=== PATIENT | female | born 1995 | race African-American/Black ===

== ENCOUNTER → 2022-07-21 09:42 | Outpatient (BNVA) | payer BC, MEDICAID, SELFPAY | PROVIDERS: Visit Provider Obstetrics & Gynecology | DX: Z36.87 Encounter for antenatal screening for uncertain dates (principal) | CPT/HCPCS: 76801 ==

== ENCOUNTER → 2022-08-19 12:30 | Outpatient (BNVA) | payer BC, MEDICAID, SELFPAY | PROVIDERS: Visit Provider Obstetrics & Gynecology | DX: O09.92 Supervision of high risk pregnancy, unspecified, second trimester (principal); Z3A.00 Weeks of gestation of pregnancy not specified | CPT/HCPCS: 80307; 81000; 85027; 86592; 86762; 86803; 86850; 86900; 87086; 87340; 87491; 87591; 87661; 87806 ==

== ENCOUNTER → 2022-09-13 10:19 | Outpatient (BNVA) | payer BC, MEDICAID, SELFPAY | PROVIDERS: Visit Provider Obstetrics & Gynecology | DX: Z36.87 Encounter for antenatal screening for uncertain dates (principal) | CPT/HCPCS: 76805 ==

== ENCOUNTER → 2022-09-19 11:15 | Outpatient (BNVA) | payer BC, MEDICAID, SELFPAY | PROVIDERS: Visit Provider Obstetrics & Gynecology | DX: O09.92 Supervision of high risk pregnancy, unspecified, second trimester (principal); Z3A.00 Weeks of gestation of pregnancy not specified | CPT/HCPCS: 81000 ==

== ENCOUNTER → 2022-10-13 09:55 | Outpatient (BNVA) | payer BC, MEDICAID, SELFPAY | PROVIDERS: Visit Provider Obstetrics & Gynecology | DX: Z34.92 Encounter for supervision of normal pregnancy, unspecified, second trimester (principal) | CPT/HCPCS: 76816 ==

== ENCOUNTER → 2022-10-20 14:20 | Outpatient (BNVA) | payer BC, MEDICAID, SELFPAY | PROVIDERS: Visit Provider Nurse Practitioner Women's Health | DX: O09.92 Supervision of high risk pregnancy, unspecified, second trimester (principal); Z3A.00 Weeks of gestation of pregnancy not specified | CPT/HCPCS: 81000; 82950 ==

== ENCOUNTER → 2022-11-18 13:05 | Outpatient (BNVA) | payer BC, MEDICAID, SELFPAY | PROVIDERS: Visit Provider Obstetrics & Gynecology | DX: O09.92 Supervision of high risk pregnancy, unspecified, second trimester (principal); O09.299 Supervision of pregnancy with other poor reproductive or obstetric history, unspecified trimester; Z87.59 Personal history of other complications of pregnancy, childbirth and the puerperium; O09.219 Supervision of pregnancy with history of pre-term labor, unspecified trimester; Z3A.00 Weeks of gestation of pregnancy not specified | CPT/HCPCS: 81000 ==

== ENCOUNTER → 2022-12-02 10:12 | Outpatient (BNVA) | payer BC, MEDICAID, SELFPAY | PROVIDERS: Visit Provider Obstetrics & Gynecology | DX: O09.92 Supervision of high risk pregnancy, unspecified, second trimester (principal); O09.299 Supervision of pregnancy with other poor reproductive or obstetric history, unspecified trimester; Z3A.00 Weeks of gestation of pregnancy not specified | CPT/HCPCS: 80053; 81000; 85027; 87086 ==

== ENCOUNTER → 2022-12-09 08:20 | Outpatient (BNVA) | payer BC, MEDICAID, SELFPAY | PROVIDERS: Visit Provider Obstetrics & Gynecology | DX: O09.90 Supervision of high risk pregnancy, unspecified, unspecified trimester (principal); Z3A.32 32 weeks gestation of pregnancy | CPT/HCPCS: 76816; 81000 ==

== ENCOUNTER 2022-12-13 07:41 | Outpatient (CLI) | payer BC, MEDICAID, SELFPAY ==
[2022-12-13] VITALS (8 sets, daily range): BP systolic 104–127; BP diastolic 58–77; PULSE 78–89; RESP 15; BMI 28.7
--- NOTE | 2022-12-13 08:01 | US_ITS ---
WS: [id number] BIOPHYSICAL PROFILE AMNIOTIC FLUID HISTORY: previous IUGR, previous preeclampsia in pregnancies COMPARISON: 12/09/2022. position: Vertex. Cardiac activity: 144 bpm. Cervix: Not visualized. Placenta: Posterior, no previa or abruption. Placenta grade: 1 Parameters are as follows: Breathin Movement: 2 Tone: 2 Fluid volume: 2 Amniotic Fluid Index: 11.1 cm; single deep vertical pocket 3.9 cm. US/US OB BPP wo NST 19703 IMPRESSION: 1. Biophysical profile score: 6/8. No breathing motions identified on thi s exam. 2. Normal amniotic fluid. 3. Grade 1 placenta.
== END 2022-12-13 10:08 | disposition home or self-care (01) ==
LOC: OPOB 07:44 → OBGYN 07:45
PROVIDERS: Visit Provider Obstetrics & Gynecology
DX: O26.899 Other specified pregnancy related conditions, unspecified trimester (principal); Z3A.00 Weeks of gestation of pregnancy not specified
CPT/HCPCS: 59025; 76819

== ENCOUNTER → 2022-12-22 07:51 | Outpatient (BNVA) | payer BC, MEDICAID, SELFPAY | PROVIDERS: Visit Provider Obstetrics & Gynecology | DX: Z34.90 Encounter for supervision of normal pregnancy, unspecified, unspecified trimester (principal) | CPT/HCPCS: 76819 ==

== ENCOUNTER → 2022-12-23 12:00 | Outpatient (BNVA) | payer BC, MEDICAID, SELFPAY | PROVIDERS: Visit Provider Nurse Practitioner Women's Health | DX: O09.90 Supervision of high risk pregnancy, unspecified, unspecified trimester (principal); Z3A.00 Weeks of gestation of pregnancy not specified | CPT/HCPCS: 81000; 82607; 82728; 82746; 83550; 85027 ==

== ENCOUNTER 2022-12-26 08:02 | Outpatient (CLI) | payer BC, MEDICAID, SELFPAY ==
[2022-12-26 09:09] LABS: Total Volume, Urine 1075 mL; Urine Total Protein 10.4 mg/dL (0-150); Urine Total Protein 24 Hour 111.8 mg/24hr (0-150)
== END 2022-12-26 08:03 | disposition home or self-care (01) ==
LOC: LAB 08:06
PROVIDERS: Visit Provider Nurse Practitioner Women's Health
DX: O09.299 Supervision of pregnancy with other poor reproductive or obstetric history, unspecified trimester (principal)
CPT/HCPCS: 84156

== ENCOUNTER 2022-12-29 08:20 | Outpatient (CLI) | payer BC, MEDICAID, SELFPAY ==
[2022-12-29 08:34] VITALS: BP 119/82; PULSE 90
--- NOTE | 2022-12-29 08:37 | US_ITS ---
WS: [id number] BIOPHYSICAL PROFILE AMNIOTIC FLUID HISTORY: Hx preeclampsia and IUGR COMPARISON: 07/21/2022, 10/13/2022 and 12/09/2022 position: Vertex. Cardiac activity: 141 bpm. Cervix: closed. Placenta: Posterior, no previa or abruption. Placenta grade: 1 Parameters are as follows: Breathin Movement: 2 Tone: 2 Fluid volume: 2 Amniotic Fluid Index: 13.1 cm. Single deep vertical pocket 4.8 cm. US/US OB BPP wo NST 35544 IMPRESSION: 1. Biophysical profile score: 8/8. 2. Normal amniotic fluid.
[2022-12-29 08:49] VITALS: BP 114/83; PULSE 92
[2022-12-29 09:04] VITALS: BP 116/82; PULSE 79
[2022-12-29 09:19] VITALS: BP 115/83; PULSE 86
[2022-12-29 09:35] VITALS: BP 96/56; PULSE 64
[2022-12-29 09:50] VITALS: BP 96/56; PULSE 64
--- NOTE | 2022-12-29 10:13 | PC.NURSE ---
THIS TELEPHONE ORDER CLERK ROOM SERVICE TOOK OVER PATIENT CARE AT 0915 FROM NAOMY MONTERO RN, PATIENT WAS OFF MONITORS JUST WAITING FOR ULTRASOUND. CIARAN HERE [facility] 0930 AND ULTRASOUND COMPLETED WITH BPP 8/8 AND NANCY OF 11. RESULTS CALLED TO DR. BURNETT AND ORDERS RECEIVED TO DISCHARGE HOME WITH INSTRUCIOTNS.
== END 2022-12-29 09:50 | disposition home or self-care (01) ==
LOC: OPOB 08:24 → OBGYN 08:27
PROVIDERS: PCP Family Medicine; Visit Provider Obstetrics & Gynecology
DX: O26.899 Other specified pregnancy related conditions, unspecified trimester (principal); Z3A.00 Weeks of gestation of pregnancy not specified
CPT/HCPCS: 59025; 76819; 99211

== ENCOUNTER → 2022-12-29 09:57 | Day surgery (SDC) | payer BC, MEDICAID, SELFPAY ==
[2022-12-29] MEDS: ferric carboxy (IVPB) 750 MG in sodium chloride 0.9% (100 ml) 100 ML 345 MG IV (10:09)
[2022-12-29 10:13] VITALS: BP 117/73; PULSE 73; RESP 18; TEMP 36.1; O2SAT 99
== END ==
LOC: GILAB 09:58
PROVIDERS: PCP Family Medicine; Visit Provider Family Medicine
DX: O99.019 Anemia complicating pregnancy, unspecified trimester (principal); Z3A.00 Weeks of gestation of pregnancy not specified
CPT/HCPCS: 96365; J1439

== ENCOUNTER → 2023-01-05 07:49 | Outpatient (BNVA) | payer BC, MEDICAID, SELFPAY | PROVIDERS: PCP Family Medicine; Visit Provider Radiology Diagnostic Radiology | DX: O99.019 Anemia complicating pregnancy, unspecified trimester (principal); Z3A.00 Weeks of gestation of pregnancy not specified | CPT/HCPCS: 76816; 76819 ==

== ENCOUNTER → 2023-01-06 10:20 | Outpatient (BNVA) | payer BC, MEDICAID, SELFPAY | PROVIDERS: PCP Family Medicine; Visit Provider Obstetrics & Gynecology | DX: O09.92 Supervision of high risk pregnancy, unspecified, second trimester (principal); Z3A.00 Weeks of gestation of pregnancy not specified | CPT/HCPCS: 81000; 87081 ==

== ENCOUNTER → 2023-01-12 08:59 | Outpatient (BNVA) | payer BC, MEDICAID, SELFPAY | PROVIDERS: PCP Family Medicine; Visit Provider Obstetrics & Gynecology | DX: O09.92 Supervision of high risk pregnancy, unspecified, second trimester (principal); Z3A.00 Weeks of gestation of pregnancy not specified | CPT/HCPCS: 76819 ==

== ENCOUNTER → 2023-01-13 11:16 | Outpatient (BNVA) | payer BC, MEDICAID, SELFPAY | PROVIDERS: PCP Family Medicine; Visit Provider Obstetrics & Gynecology | DX: O09.90 Supervision of high risk pregnancy, unspecified, unspecified trimester (principal); Z3A.00 Weeks of gestation of pregnancy not specified | CPT/HCPCS: 81000; 85025 ==

== ENCOUNTER → 2023-01-19 09:32 | Outpatient (BNVA) | payer BC, MEDICAID, SELFPAY | PROVIDERS: PCP Family Medicine; Visit Provider Obstetrics & Gynecology | DX: O09.92 Supervision of high risk pregnancy, unspecified, second trimester (principal); Z3A.00 Weeks of gestation of pregnancy not specified | CPT/HCPCS: 76819 ==

== ENCOUNTER → 2023-01-20 11:18 | Outpatient (BNVA) | payer BC, MEDICAID, SELFPAY | PROVIDERS: Visit Provider Obstetrics & Gynecology | DX: O09.90 Supervision of high risk pregnancy, unspecified, unspecified trimester (principal); Z3A.00 Weeks of gestation of pregnancy not specified | CPT/HCPCS: 81000 ==

== ENCOUNTER 2023-01-22 06:45 | Inpatient (IN) | payer BC, MEDICAID, SELFPAY ==
[2023-01-22] VITALS (59 sets, daily range): BP systolic 110–171; BP diastolic 57–108; PULSE 56–146; RESP 18; TEMP 35.7–36.9; O2SAT 95–100
[2023-01-22 07:26] LABS: Basophils % 0.5 %; Eosinophils # 0.2 10^3/uL (0.0-0.8); Eosinophils % 2.9 %; Hematocrit 40.1 % (37.0-47.0); Hemoglobin 11.9 g/dL (11.5-15.3); Lymphocytes # 1.8 10^3/uL (0.8-4.8); Lymphocytes % 27.5 %; Mean Corpuscular HGB Conc 29.7 g/dL (30.0-36.0); Mean Corpuscular Hemoglobin 25.3 pg (28.0-34.0); Mean Corpuscular Volume 85.3 fl (81-99); Mean Platelet Volume 12.7 fL (7.4-10.4); Monocytes # 0.5 10^3/uL (0.2-0.9); Monocytes % 7.2 %; Neutrophils # 4.01 10^3/uL (1.8-7.7); Neutrophils % 61.6 %; Nucleated Red Blood Cells % 0 %; Platelet Count 169 10^3/cmm (130-400); White Blood Count 6.5 10^3/uL (4.0-10.0)
--- NOTE | 2023-01-22 08:19 | PM.OBGYHP ---
Providers/Chief Complaint Admitting Physician: Laurie ADAMES Primary TIRE MAINTENANCE TECHNICIAN: Jose PETERSON Chief Complaint: possible ROM HPI TIRE MAINTENANCE TECHNICIAN History of Present Illness Mile Zambrano is a 27 year old female with JOSELIN 02/02/2023 currently at 38.3 weeks gestation admitted with complaints of rupture of membranes at 5 AM today. Patient denies vaginal bleeding or decreased movement. Patient has history of previous delivery with IUGR and PIH, and therefore has been receiving weekly NSTs and biophysical profiles. Initial nursing assessment?EFM category 1 with contractions every 10 minutes and moderate variability. Cervix initial exam 2 cm/thick/-2 vertex presentation. Gross fluid clear. Nitrazine positive. After review of external monitoring, reviewed with patient management of labor plan and augmentation since contractions have spaced, and are very irregular. Patient verbalizes understanding that she was induced last with Pitocin. Explained if nonreassuring monitoring occurs we will discontinue Pitocin and if indicated emergency . Patient understands and agrees. Labs Rubella: Immune RPR: Negative GBS: Negative Review of Systems General: Reports: 10 or more systems reviewed and unremarkable except in HPI and below Narrative: 27-year-old female alert and oriented x3 answers questions appropriately Medications/Allergies Home Medications Medication Instructions Recorded Confirmed Last Taken Type ferrous sulfate 325 mg (65 mg 325 mg PO BID 90 days #180 tabs 08/19/22 01/20/23 12/29/22 Rx iron) tablet,delayed release ferric carboxymaltose (Injectafer) 750 mg (15 mL) IV Q7D 2 doses #15 12/28/22 01/20/23 12/29/22 Rx mL triamcinolone acetonide 0.5 % 1 applic topical TID #15 grams 01/06/23 01/20/23 Unknown Rx topical cream Allergies Allergy/AdvReac Type Severity Reaction Status Date / Time No Known Allergies Allergy Verified 01/20/23 11:57 PFSH TIRE MAINTENANCE TECHNICIAN PFSH: Medical History History of intrauterine growth restriction in prior , currently History of pre-term labor History of spontaneous , currently eclampsia Supervision of high risk in second trimester Surgical History No pertinent past surgical history Family History Unknown Family history unknown patient was adopted Other Diabetes Denies family history of Colon cancer Ovarian cancer Thyroid cancer Heart disease Breast cancer Hypertension Uterine cancer Stroke Social History Smoking and tobacco status: never smoked History History History 11 Term 3 2 Miscarriages/Ectopic 5 Living Children 5 Care JOSELIN Calculator Estimated Delivery Date Method Current WG Current Estimate 02/03/23 LMP (Certain) 38w 2d Other Estimates 02/02/23 Ultrasound #1 38w 3d Specific Issues/Plans HX OF IUGR HX PTL AND DELIVERY HX PRE-E ANEMIA Vitals/I&O/Wt Last Vital Signs Temp 96.3 F L 01/22/23 06:24 Pulse 91 01/22/23 08:18 Resp 18 01/22/23 06:25 BP 122/82 01/22/23 08:18 O2 Del Method 01/22/23 06:25 Weight last 48 hrs Weight 70.76 kg Physical Exam Narrative: 27-year-old female alert and orient x3 no acute distress. Vital signs stable afebrile HENMT: COMMON NORMALS: normocephalic, moist oral mucous membranes and dentition normal Resp: COMMON NORMALS: normal respiratory effort and clear to auscultation bilaterally Cardio: COMMON NORMALS: regular rate and regular rhythm GI: COMMON NORMALS: Soft to palpation and non-tender : OTHER: Per nursing exam cervix 2 cm / 50%/-2 vertex presentation Extremity: COMMON NORMALS: normal to inspection, no calf tenderness and no pedal edema Neuro: COMMON NORMALS: patient oriented x3, CN's II-XII intact bilaterally, moves all extremities and deep tendon reflexes 2+ bilaterally Data 01/22/23 06:50 A&P Assessment and plan (1) History of prior with IUGR : (2) History of pre-eclampsia in prior , currently : Plan A.1. 27-year-old at 38.3 weeks gestation 2. SROM 3. GBS negative P.1. admit to labor and delivery for management of labor, augment for adequate contractions Attestations Medical Necessity Statement*: Management of labor Coding Level of Care Code Acute Code for Chg Fwd Diagnoses History of prior with IUGR Z87.59 History of pre-eclampsia in prior , currently O09.299
[2023-01-22] MEDS: oxytocin 30 UNIT/500 ML BAG IV (08:35)
[2023-01-22] MEDS: dextrose 5%-lactated ringers 1,000 ML 125 ML IV (08:36)
--- NOTE | 2023-01-22 09:51 | PM.OBGYPN ---
SOLDERING TECHNICIAN Subjective Subjective: Interval history: Patient seen breathing well with contractions. EFM?category 1 Cervix?5 cm / 80%/-2 vertex presentation clear fluid noted. Discussion with patient whether epidural as desired. Patient desires epidural informed we will contact anesthesia for placement. IV pain medication offered patient declines. Labor: Station: -2 Amniotic Membrane Status: Ruptured Monitor Mode: External Contraction Pattern: Irregular Vitals/I&O/Wt Last Vital Signs Temp 96.3 F L 01/22/23 06:24 Pulse 71 01/22/23 09:39 Resp 18 01/22/23 06:25 BP 128/86 01/22/23 09:39 O2 Del Method 01/22/23 07:10 Weight last 48 hrs Weight 70.76 kg Data 01/22/23 06:50 A&P Assessment and plan (1) Supervision of high risk in second trimester: Plan A. Active labor with spontaneous rupture membranes P. Will contact anesthesia for epidural placement Attestations Medical Necessity Statement*: Management of labor Coding Level of Care Code Acute Code for Chg Fwd Diagnoses Supervision of high risk in second trimester O09.92
[2023-01-22] MEDS: lactated ringers 1,000 ML 999 ML IV (09:58)
--- NOTE | 2023-01-22 10:47 | P.ANES_ITS ---
Documented by User: Titus Pan Jr, PLATE EMBOSSER 01/22/23 10:50 Anesthesia Procedures Procedure/Date: 01/22/23 DEYSI Epidural: Time Out Performed: Yes Consents Signed: Procedure Consent Co nsent: requested by attending/covering physician, from patient, risks and benefits reviewed and patient agrees to proceed Lumbar Level: L3-L4 Epid ural position: sitting Epidural procedure: sterile prep of area, 1% lidocaine to numb the area, 18 g needle, neg for paresthesia, test dose given, 1.5% xylocaine 1:200k epi (5cc), 0.2% Ropivacaine bolus ml (4cc and Fentanyl 100mcg ), sterile dressing applied, L.U.D. no apparent complications and 0.2% Ropiavacaine @ mls/hr (13cc/hour.) Additional Comments: PATO at 7cm. Epidural cath plaed 2 cm into space. Pt tolerated well Documented by User: Tom Howard 01/23/23 03:21 Anesthesia Procedures Procedure/Date: 01/23/23
--- NOTE | 2023-01-22 14:16 | P.PCNOB_ITS ---
Delivery Note: Date of delivery: January 22, 2023 Pre-delivery diagnoses: 27yo at 38.3 wk IUP in early labor SROM Hx of IUGR last Hx of PIH last Post-delivery diagnoses: 27yo at 28.3 wk IUP delivered via Procedure: 27-year-old female delivered OA presentation and following a contraction the anterior followed by the posterior shoulders delivered with the remainder of baby's body to follow. Spontaneous cry was noted. After delay of cord clamping the cord was clamped and cut and the baby placed on the maternal chest for bon ding. The baby was dried and stimulated by nursing staff and evaluated. Three- vessel cord was noted cord blood obtained and handed off. The uterus was massaged and the placenta presented in a Santana presentation with trailing membranes. IV solution with Pitocin was started and a bolus manner. The uterus firmed well. The uterus and vaginal vault explored no lacerations noted. ?8/ 9 weight pending Op report anesthesia: Epidural Delivering Physician: Alexi Estimated blood loss (mL): 300 Findings: viable female 8/9 Delivery: Post-Delivery Status: Stable History History History 11 Term 3 2 Miscarriages/Ectopic 5 Living Children 5 A&P Assessment and plan (1) Supervision of high risk in second trimester: A. 27-year-old delivered via a viable female History of IUGR with previous History of PIH last History of anemia Plan P. Began care Coding Level of Care Code Acute Code for Chg Fwd Diagnoses Supervision of high risk in second trimester O09.92
[2023-01-22 17:35] LABS: Add Urine Microscopic? YES; Bilirubin Urine Neg (Negative); Blood Urine 2+ (Negative); Glucose Urine UA Norm (Normal); Ketones Urine 1+ (Negative); Leukocyte Esterase Urine Negative (Negative); Nitrate Urine Negative (Negative); Protein Urine Neg (Negative); Urine Appearance SL Hazy (CLEAR); Urine Color Yellow (Yellow); Urobilinogen Urine Norm (Negative); pH Urine 7 (5-7)
[2023-01-22 17:38] LABS: Add Urine Culture? No; Bacteria Urine TRACE /hpf; Mucus Urine 2+ /hpf; Squamous Epithelial Cell Urine RARE /hpf (0-5)
[2023-01-22 17:39] LABS: RBC Urine 0-4 /hpf (0-2); WBC Urine RARE /hpf (0-5)
[2023-01-22 17:41] LABS: Alanine Aminotransferase 8 U/L (0-33); Albumin Level 3.1 g/dL (3.5-5.2); Alkaline Phosphatase 157 U/L (35-105); Anion Gap 13.8 (5-19); Aspartate Amino Transferase 14 U/L (0-32); Blood Urea Nitrogen 4 mg/dL (6-20); Calcium 9.2 mg/dL (8.5-10.5); Carbon Dioxide 25 mmol/L (22-29); Chloride 106 mmol/L (98-107); Globulin 3.4 g/dL (1.3-4.6); Glucose 112 mg/dL (65-115); Osmolality Calculated 290 mOsm/kg (285-295); Potassium 3.8 mmol/L (3.5-5.1); Sodium 141 mmol/L (136-145); Total Bilirubin 0.2 mg/dL (0.15-1.2); Total Protein 6.5 g/dL (6.6-8.7)
[2023-01-22] MEDS: acetaminophen 325 mg Tablet 650 MG PO (17:54)
[2023-01-22] MEDS: docusate sodium 100 mg Capsule PO (17:55)
[2023-01-22 18:54] LABS: UPRO/UCREAT Ratio 0.11 mg/mg CR; Urine Creatinine 105 mg/dL (28-217); Urine Protein Random 12 mg/dL
[2023-01-22 18:57] LABS: Uric Acid 4.1 mg/dL (2.4-5.7)
[2023-01-22] MEDS: ibuprofen 800 mg tablet PO (21:02)
[2023-01-23 02:45] LABS: Hematocrit 35.4 % (37.0-47.0); Hemoglobin 10.3 g/dL (11.5-15.3); Mean Corpuscular HGB Conc 29.1 g/dL (30.0-36.0); Mean Corpuscular Hemoglobin 25.1 pg (28.0-34.0); Mean Corpuscular Volume 86.1 fl (81-99); Mean Platelet Volume 11.4 fL (7.4-10.4); Platelet Count 151 10^3/cmm (130-400); Red Blood Count 4.11 10^6/uL (4.1-5.3)
--- NOTE | 2023-01-23 03:21 | ANE.PACU2 ---
Inpatient post-anesthesia follow up: Airway intact: Yes Vital signs: Temperature 97.4 F Pulse Rate 99 Respiratory Rate 18 Blood Pressure 112/57 Pulse Oximetry 96 Oxygen Delivery Me thod Room Air Oxygen Flow Rate Fraction of Inspir ed Oxygen Hydration adequate: Yes Nausea and vomiting: No Pain level: 2 Mental status: Baseline
[2023-01-23 05:10] VITALS: BP 100/66; PULSE 78; RESP 14; TEMP 36.6; O2SAT 97
[2023-01-23] MEDS: ibuprofen 800 mg tablet PO ×2 (08:29→15:30)
[2023-01-23] MEDS: prenatal vitamin Capsule 1 CAP PO (08:29)
[2023-01-23] MEDS: docusate sodium 100 mg Capsule PO (08:30)
[2023-01-23 10:11] VITALS: BP 126/92; PULSE 93; RESP 16; TEMP 36.6; O2SAT 97
[2023-01-23] MEDS: acetaminophen 325 mg Tablet 650 MG PO (11:01)
--- NOTE | 2023-01-23 12:17 | PM.OBGYDC ---
Discharge Providers TROLLEY WIRE INSTALLER Date of Admission: 01/22/23 06:45 Date of Discharge: 01/23/23 Attending Provider at Admission: Prema Muro DO Attending Provider at Discharge: Prema Muro DO Primary TROLLEY WIRE INSTALLER: Dr. Garcia Diagnoses at Discharge Discharge Diagnosis (1) Supervision of high risk in second trimester: Details from hospital stay: 27-year-old was admitted on 01/22/2023 in early labor at 38.3 weeks gestation with spontaneous rupture of membranes. Patient's labor was augmented with Pitocin and patient delivered a viable baby girl with no complications. Patient desires to breast-feed and supplement with a bottle. Patient is tolerating a regular diet, voiding and ambulating without difficulties. Patient denies any headaches blurred vision or dizziness no chest pain or shortness of breath. VSS, afebrile Abdomen?soft, fundus firm, lochia light. Extremities?no edema, negative Homans' sign. Lab reviewed hemoglobin 10.5/hematocrit 35.4. Discussed discharge orders and expectations. No heavy lifting pushing or pulling no sexual intercourse douching or tampons x6 weeks. Patient is to continue her vitamins and iron which she has at home. Advised to take ibuprofen 600 or 800 mg p.o. every 6 hours with food if needed for pain. Patient states she has ibuprofen at home. Status: Acute Reason for Visit Reason for Visit: possible ROM Hospital Course Hospital Course Delivery and course unremarkable. Information Peripartum Data: Infant Delivery Method: Vaginal Laceration description: None Physical Exam Urinary Catheter Management: Hauser Latex: Cath Placed During This Visit: yes, but has since been removed by the nurse Reason for Continuing Indwelling Catheter: Decision to DC Catheter Urinary Catheter Date of Insertion: 01/22/23 Urinary Catheter Time of Insertion: 11:31 Date Urinary Catheter Removed: 01/22/23 Time Urinary Catheter Discontinued: 13:58 History History History 11 Term 3 2 Miscarriages/Ectopic 5 Living Children 5 Discharge Data Studies Completed and Pending Laboratory Results WBC 8.0 10^3/uL (4.0-10.0) 01/23/23 02:35 RBC 4.11 10^6/uL (4.1-5.3) 01/23/23 02:35 Hgb 10.3 g/dL (11.5-15.3) L 01/23/23 02:35 Hct 35.4 % (37.0-47.0) L 01/23/23 02:35 MCV 86.1 fl (81-99) 01/23/23 02:35 MCH 25.1 pg (28.0-34.0) L 01/23/23 02:35 MCHC 29.1 g/dL (30.0-36.0) L 01/23/23 02:35 RDW Not Reportable 01/23/23 02:35 Plt Count 151 10^3/cmm (130-400) 01/23/23 02:35 MPV 11.4 fL (7.4-10.4) H 01/23/23 02:35 Neut % (Auto) 61.6 % 01/22/23 06:50 Lymph % (Auto) 27.5 % 01/22/23 06:50 Callahan % (Auto) 7.2 % 01/22/23 06:50 Eos % (Auto) 2.9 % 01/22/23 06:50 Baso % (Auto) 0.5 % 01/22/23 06:50 Neut # (Auto) 4.01 10^3/uL (1.8-7.7) 01/22/23 06:50 Lymph # (Auto) 1.8 10^3/uL (0.8-4.8) 01/22/23 06:50 Callahan # (Auto) 0.5 10^3/uL (0.2-0.9) 01/22/23 06:50 Eos # (Auto) 0.2 10^3/uL (0.0-0.8) 01/22/23 06:50 Baso # (Auto) 0.0 10^3/uL (0.0-0.1) 01/22/23 06:50 Nucleated RBC % (auto) 0 % 01/22/23 06:50 Nucleated RBCs # 0.0 /100WBC 01/22/23 06:50 Sodium 141 mmol/L (136-145) 01/22/23 16:55 Potassium 3.8 mmol/L (3.5-5.1) 01/22/23 16:55 Chloride 106 mmol/L (98-107) 01/22/23 16:55 Carbon Dioxide 25 mmol/L (22-29) 01/22/23 16:55 Anion Gap 13.8 (5-19) 01/22/23 16:55 BUN 4 mg/dL (6-20) L 01/22/23 16:55 Creatinine 0.4 mg/dL (0.5-0.9) L 01/22/23 16:55 GFR Calculation 230.0 mL/min (90-130) H 01/22/23 16:55 Glucose 112 mg/dL (65-115) 01/22/23 16:55 Calculated Osmolality 290 mOsm/kg (285-295) 01/22/23 16:55 Uric Acid 4.1 mg/dL (2.4-5.7) 01/22/23 16:55 Calcium 9.2 mg/dL (8.5-10.5) 01/22/23 16:55 Total Bilirubin 0.2 mg/dL (0.15-1.2) 01/22/23 16:55 AST 14 U/L (0-32) 01/22/23 16:55 ALT 8 U/L (0-33) 01/22/23 16:55 Alkaline Phosphatase 157 U/L (35-105) H 01/22/23 16:55 Total Protein 6.5 g/dL (6.6-8.7) L 01/22/23 16:55 Albumin 3.1 g/dL (3.5-5.2) L 01/22/23 16:55 Globulin 3.4 g/dL (1.3-4.6) 01/22/23 16:55 Urine Color Yellow (Yellow) 01/22/23 17:00 Urine Appearance Sl hazy (CLEAR) A 01/22/23 17:00 Urine pH 7 (5-7) 01/22/23 17:00 Ur Specific Larimore 1.010 (1.005-1.030) 01/22/23 17:00 Urine Protein Neg (Negative) 01/22/23 17:00 Urine Glucose (UA) Norm (Normal) 01/22/23 17:00 Urine Ketones 1+ (Negative) H 01/22/23 17:00 Urine Blood 2+ (Negative) H 01/22/23 17:00 Urine Nitrate Negative (Negative) 01/22/23 17:00 Urine Bilirubin Neg (Negative) 01/22/23 17:00 Urine Urobilinogen Norm mg/dL (Negative) 01/22/23 17:00 Ur Leukocyte Esterase Negative (Negative) 01/22/23 17:00 Urine RBC 0-4 /hpf (0-2) H 01/22/23 17:00 Urine WBC Rare /hpf (0-5) 01/22/23 17:00 Ur Squamous Epith Cells Rare /hpf (0-5) 01/22/23 17:00 Amorphous Sediment Not Reportable 01/22/23 17:00 Urine Bacteria Trace /hpf (NONE) 01/22/23 17:00 Urine Mucus 2+ /hpf 01/22/23 17:00 U Random Total Protein 12 mg/dL 01/22/23 16:55 Urine Creatinine 105 mg/dL (28-217) 01/22/23 16:55 Protein/Creatinin Ratio 0.11 mg/mg CR 01/22/23 16:55 Vitals Last Vital Signs Temp 97.8 F 01/23/23 10:11 Pulse 93 01/23/23 10:11 Resp 16 01/23/23 10:11 BP 126/92 01/23/23 10:11 Pulse Ox 97 01/23/23 10:11 O2 Del Method 01/23/23 10:11 Discharge Plan Discharge Patient Disposition: Home Condition: Stable Prescriptions: Continued ferrous sulfate 325 mg (65 mg iron) tablet,delayed release (DR/EC) 325 mg PO BID 90 Days Qty: 180 1RF Discharge Orders: Discharge Order (Routine); Ordered 01/23/23 Ordered By: Prema Muro Discharge Diet: Regular Discharge Activity: Increase activity as tolerated Patient Instructions: Opioid Safety Activity Restrictions/Additional Instructions: Pelvic rest x6 weeks Assessment: S/p viable female Plan of Treatment: 1. Discharge to home today 2. Follow-up with attending Dr. Garcia in 4 weeks Discharge Attestations TROLLEY WIRE INSTALLER Time Spent in Discharge Care*: less than 30 min Coding Level of Care Code Acute Code for Chg Fwd Diagnoses Supervision of high risk in second trimester O09.92
[2023-01-23 15:35] VITALS: BP 125/86; PULSE 93; RESP 17; TEMP 36.9
[2023-01-23 15:40] VITALS: BP 125/86; PULSE 93; RESP 17; TEMP 36.9
== END 2023-01-23 15:40 | disposition home or self-care (01) | DRG 807 ==
PROVIDERS: Admitting Provider Obstetrics & Gynecology; Visit Provider Obstetrics & Gynecology
DX: O42.02 Full-term premature rupture of membranes, onset of labor within 24 hours of rupture (principal); Z37.0 Single live birth; O99.02 Anemia complicating childbirth; D64.9 Anemia, unspecified; Z3A.38 38 weeks gestation of pregnancy
CPT/HCPCS: 12345; 36415; 51702; 59025; 59409; 80053; 81001; 82570; 83986; 84156; 84550; 85025; 85027; 96374; 99211; J2590; J2795; J3010; J7120; J7121

== ENCOUNTER 2023-12-02 14:30 | Outpatient (CLI) | payer BC, MEDICAID, SELFPAY ==
[2023-12-02 14:40] VITALS: RESP 17; BMI 29.2
[2023-12-02 15:00] LABS: Add Urine Culture? Yes; Bacteria Urine TRACE /hpf; Bilirubin Urine 1+ (Negative); Blood Urine 3+ (Negative); Glucose Urine UA Norm (Normal); Ketones Urine 1+ (Negative); Leukocyte Esterase Urine 1+ (Negative); Nitrate Urine Negative (Negative); Protein Urine 2+ (Negative); RBC Urine TOO NUMEROUS TO CNT /hpf (0-2); Squamous Epithelial Cell Urine 0-4 /hpf (0-5); Urine Appearance Cloudy (CLEAR); Urine Color Red (Yellow); Urobilinogen Urine 1 mg/dL (Negative); WBC Urine 0-4 /hpf (0-5); pH Urine 7 (5-7)
[2023-12-02] MEDS: cefdinir 300 MG CAPSULE PO (15:20)
== END 2023-12-02 15:27 | disposition home or self-care (01) ==
LOC: OPOB 14:35 → OBGYN 14:35
PROVIDERS: Visit Provider Family Medicine
DX: O23.40 Unspecified infection of urinary tract in pregnancy, unspecified trimester (principal); Z3A.00 Weeks of gestation of pregnancy not specified
CPT/HCPCS: 59025; 81001; 87086; 99211

== ENCOUNTER 2023-12-17 10:19 | Outpatient (CLI) | payer BC, MEDICAID, SELFPAY ==
[2023-12-17 10:15] VITALS: BMI 29.8
[2023-12-17 10:30] VITALS: BP 134/89; PULSE 104; TEMP 35
[2023-12-17 10:45] VITALS: BP 126/76; PULSE 88
[2023-12-17 11:00] VITALS: BP 134/84; PULSE 96
[2023-12-17 11:06] LABS: Add Urine Culture? No; Bacteria Urine 2+ /hpf; Bilirubin Urine Neg (Negative); Blood Urine Neg (Negative); Glucose Urine UA Trace (Normal); Ketones Urine 1+ (Negative); Leukocyte Esterase Urine 1+ (Negative); Mucus Urine 1+ /hpf; Nitrate Urine Negative (Negative); Protein Urine Neg (Negative); Squamous Epithelial Cell Urine 15-25 /hpf (0-5); Urine Appearance SL Hazy (CLEAR); Urine Color Dark Yellow (Yellow); Urobilinogen Urine Norm (Negative); WBC Urine 15-25 /hpf (0-5); pH Urine 6 (5-7)
[2023-12-17 11:15] VITALS: BP 132/80; PULSE 118
[2023-12-17 11:31] VITALS: BP 137/86; PULSE 93
[2023-12-17 11:45] VITALS: BP 134/84; PULSE 80
[2023-12-17] MEDS: cefTRIAXone 1,000 MG, lidocaine 1% 2.1 ML in SYRINGE 1 EACH 2.1 MG IM (12:05)
== END 2023-12-17 12:06 | disposition home or self-care (01) ==
LOC: OPOB 10:19 → OBGYN 10:20
PROVIDERS: Visit Provider Family Medicine
DX: O16.9 Unspecified maternal hypertension, unspecified trimester (principal); Z3A.00 Weeks of gestation of pregnancy not specified
CPT/HCPCS: 59025; 81001; 96372; 99211; J0696

== ENCOUNTER 2023-12-18 07:37 | Outpatient (CLI) | payer BC, MEDICAID, SELFPAY ==
[2023-12-18 07:51] VITALS: BMI 29.8
[2023-12-18 08:11] VITALS: BP 116/79; PULSE 65
[2023-12-18] MEDS: cefTRIAXone 1,000 MG, lidocaine 1% 2.1 ML in SYRINGE 1 EACH 2.1 MG IM (08:15)
[2023-12-18 08:20] VITALS: BP 116/79; PULSE 65
== END 2023-12-18 08:20 | disposition home or self-care (01) ==
LOC: OPOB 07:39 → OBGYN 07:44
PROVIDERS: Visit Provider Family Medicine
DX: O26.899 Other specified pregnancy related conditions, unspecified trimester (principal); Z3A.00 Weeks of gestation of pregnancy not specified
CPT/HCPCS: 96372; 99211; J0696

== ENCOUNTER 2023-12-19 07:54 | Outpatient (CLI) | payer BC, MEDICAID, SELFPAY ==
[2023-12-19 08:00] VITALS: BP 115/79; PULSE 90
[2023-12-19] MEDS: cefTRIAXone 1,000 MG in lidocaine 1% 2.1 ML 2.1 MG IM (08:16)
[2023-12-19 08:20] VITALS: BMI 29.8
== END 2023-12-19 12:30 | disposition home or self-care (01) ==
LOC: OPOB 07:56 → OBGYN 07:56
PROVIDERS: Visit Provider Family Medicine
DX: O26.899 Other specified pregnancy related conditions, unspecified trimester (principal); Z3A.00 Weeks of gestation of pregnancy not specified
CPT/HCPCS: 96372; J0696

== ENCOUNTER 2024-01-09 02:12 | Observation (INO) | payer BC, MEDICAID, SELFPAY ==
[2024-01-09 00:37] VITALS: BMI 30.2
[2024-01-09 00:54] VITALS: BP 121/90; PULSE 89
[2024-01-09 01:24] VITALS: BP 120/87; PULSE 75
[2024-01-09 01:26] LABS: Bilirubin Urine Neg (Negative); Blood Urine 3+ (Negative); Glucose Urine UA Norm (Normal); Ketones Urine Negative (Negative); Leukocyte Esterase Urine Negative (Negative); Nitrate Urine Negative (Negative); Protein Urine 1+ (Negative); RBC Urine >100 /hpf (0-2); Urine Appearance Hazy (CLEAR); Urine Color Red (Yellow); Urobilinogen Urine Neg (Negative); pH Urine 6 (5-7)
[2024-01-09 01:27] LABS: Add Urine Culture? Yes; Bacteria Urine TRACE /hpf; Mucus Urine 2+ /hpf; Squamous Epithelial Cell Urine 0-4 /hpf (0-5)
--- NOTE | 2024-01-09 02:19 | USR_ITS ---
PROCEDURE INFORMATION: Exam: US Retroperitoneal; Complete; Kidneys and Bladder Exam date and time: 01/09/2024 3:41 AM Age: 28 years old Clinical indication: Abdominal pain; Patient HX: Left flank pain x 24 hours. 31 weeks . ; Additional info: CVA pain TECHNIQUE: Imaging protocol: Real-time ultrasound of the retroperitoneum with image documentation. Complete exam focused on the kidneys and bladder. [place]PARISON: [place] [id number] 12/12/2023 11:07 AM FINDINGS: Right kidney: Normal parenchymal echogenicity. No stones. Mild hydronephrosis. Left kidney: Normal parenchymal echogenicity. No stones. Mild hydronephrosis. Urinary bladder: Unremarkable. Bilateral ureteral jets seen. US/US renal BI* [id number] IMPRESSION: Mild bilateral hydronephrosis. Bilateral ureteral jets seen.
[2024-01-09] MEDS: lactated ringers 1,000 ML 999 ML IV (02:35)
[2024-01-09] MEDS: ketorolac 30 mg/mL INJ IVP (02:35)
[2024-01-09 02:59] LABS: Basophils # 0.1 10^3/uL (0.0-0.1); Basophils % 0.8 %; Eosinophils # 0.3 10^3/uL (0.0-0.8); Hematocrit 35.9 % (36-47); Lymphocytes # 1.4 10^3/uL (0.8-4.8); Lymphocytes % 23.6 %; Mean Corpuscular HGB Conc 31.5 g/dL (30-55); Mean Corpuscular Hemoglobin 27.2 pg (27-33); Mean Corpuscular Volume 86.3 fl (85-98); Mean Platelet Volume 12.8 fL (7.4-10.4); Monocytes # 0.5 10^3/uL (0.2-0.9); Monocytes % 8.4 %; Neutrophils # 3.75 10^3/uL (1.8-7.7); Neutrophils % 61.9 %; Nucleated Red Blood Cells % 0 %; Platelet Count 131 10^3/cmm (157-399); Red Blood Count 4.16 10^6/uL (3.85-5.65); Red Cell Distribution Width 13.6 % (12.1-15.1); White Blood Count 6.06 10^3/uL (3.29-11.43)
[2024-01-09 03:12] LABS: Alanine Aminotransferase 14 U/L (0-33); Albumin Level 3.4 g/dL (3.5-5.2); Alkaline Phosphatase 150 U/L (35-105); Anion Gap 15.9 (5-19); Aspartate Amino Transferase 23 U/L (0-32); Blood Urea Nitrogen 7 mg/dL (6-20); Calcium 8.9 mg/dL (8.5-10.5); Carbon Dioxide 21 mmol/L (22-29); Chloride 104 mmol/L (98-107); Globulin 3.8 g/dL (1.3-4.6); Glomerular Filtration Rate 176.5 mL/min (90-130); Glucose 87 mg/dL (65-115); Osmolality Calculated 281 mOsm/kg (285-295); Potassium 3.9 mmol/L (3.5-5.1); Sodium 137 mmol/L (136-145); Total Bilirubin 0.2 mg/dL (0.15-1.2); Total Protein 7.2 g/dL (6.6-8.7)
[2024-01-09 04:01] VITALS: BP 110/75; BP 93/56; PULSE 75; PULSE 84; RESP 16; TEMP 36.3; O2SAT 98
[2024-01-09] MEDS: lactated ringers 1,000 ML 200 ML IV (04:02)
[2024-01-09 09:49] VITALS: BP 107/55; PULSE 83; TEMP 36.4
[2024-01-09 15:59] VITALS: BP 113/82; PULSE 65; TEMP 35.9
[2024-01-09] MEDS: TRAMadol 50 mg Tablet PO (16:14)
--- NOTE | 2024-01-09 17:44 | P.HP_ITS ---
Providers/Chief Complaint 2 Admitting Physician: Ashley Negron MD Chief Complaint: back pain, blood in urine History of Present Illness Mile Zambrano is a 28 year old female at 31 weeks 3 days gestation who presented complaining of worsening left flank pain. She says it started around 8 PM last evening and by 11:30 PM it was almost unbearable so she came into the hospital. She also noted that she had gross hematuria which she has had off and on recently. She did have some CVA tenderness with suspicion for possible kidney stone. Review of Systems 2 General: Reports: Other (She denies any contractions or vaginal bleeding. She has good moveme) Medications/Allergies Home Medications Medication Instructions Recorded Confirmed Last Taken Type metformin 500 mg tablet 500 mg PO DAILY 01/09/24 01/09/24 01/08/24 History Allergies Allergy/AdvReac Type Severity Reaction Status Date / Time No Known Allergies Allergy Verified 01/09/24 15:11 PFSH Acute 2 PFSH: Medical History History of intrauterine growth restriction in prior , currently History of pre-term labor History of spontaneous , currently eclampsia Supervision of high risk in second trimester Surgical History No pertinent past surgical history Family History Unknown Family history unknown patient was adopted Other Diabetes Denies family history of Colon cancer Ovarian cancer Thyroid cancer Heart disease Breast cancer Hypertension Uterine cancer Stroke Social History Smoking and tobacco/nicotine status: never used tobacco/nicotine Female Reproductive History: : 12 Vitals/I&O/Wt Last Vital Signs Temp 96.6 F L 01/09/24 15:59 Pulse 65 01/09/24 15:59 Resp 16 01/09/24 04:01 BP 113/82 01/09/24 15:59 Pulse Ox 98 01/09/24 04:01 O2 Del Method Room Air 01/09/24 04:01 01/09/24 01/09/24 01/09/24 06:59 14:59 22:59 Intake Total 1500 / 1500 1000 / 1000 3000 / 4000 Output Total 950 / 950 1800 / 1800 250 / 2050 Balance 550 / 550 -800 / -800 2750 / 1950 Weight last 48 hrs Weight 72.575 kg Physical Exam 2 Narrative: Alert and oriented, sitting up in bed eating lunch, heart regular rate and rhythm, lungs clear to auscultation bilaterally, abdomen is gravid and nontender, she really does not have any CVA tenderness currently, her extremities have trace edema but no calf tenderness Data 01/09/24 02:33 01/09/24 02:33 A&P Assessment and plan (1) Acute left flank pain: Rule out possible kidney stone (2) Hematuria: This has been recurrent. (3) with 31 completed weeks gestation: Attestations 2 Medical Necessity Statement*: Pain management, IV fluids, and imaging for possible kidney stone Coding Level of Care Code Acute Code for Chg Fwd Diagnoses Acute left flank pain R10.9 Hematuria R31.9 with 31 completed weeks gestation Z3A.31
--- NOTE | 2024-01-09 17:49 | PM.DCS ---
Discharge Providers Date of Admission: 01/09/24 02:12 Date of Discharge: January 09, 2024 Attending Provider at Admission: Ashley Negron MD Attending Provider at Discharge: Ashley Negron MD Diagnoses at Discharge Discharge Diagnosis (1) Acute left flank pain: Details from hospital stay: The patient's pain responded very well to 1 dose of ketorolac. It was absent for good 12 hours. When it began to recur she was complaining of bilateral back pain. Renal ultrasound was not indicative of any nephrolithiasis. It did show mild bilateral hydronephrosis but the kidneys and bladder were otherwise unremarkable. Given her recurrent complaints of pelvic pain and back pain I suspect this is secondary to being her seventh . Status: Acute (2) Hematuria: Details from hospital stay: December 02 patient presented to OB triage complaining of pelvic pain. She had 3+ blood in her urine 2+ protein, white blood cells 0-4 squamous epithelials 0-4. Infection was suspected so she was given Macrobid for 1 week, urine culture grew out 30-40,000 mixed urogenital leon. December 12 routine office visit: Urinalysis was negative for blood, culture grew 10-49,000 colony-forming units of Streptococcus gallolyticus ssp Pasteurianus. Patient was asymptomatic so she was not treated at this time December 17 patient presented to OB triage complaining of abdominal pain and flank pain. Since she had a known positive culture on December 12 she was then treated with Rocephin 1 g IM x 3 days. December 21 patient presented for office visit complaining of abdominal pain flank pain groin pain back pain frequency vagina hurting vagina hurting inside and the outside. Pelvic exam was done and she had an inflamed tender vagina but [facility] swabs were negative for STDs and yeast and BV. Patient declined treatment for BV and yeast since her swabs were negative. Urine that day had trace blood urine culture that day was negative. Today January 08 she presented to labor and delivery triage complaining of left flank pain. She had some CVA tenderness, 3+ blood in the urine with greater than 100 RBCs no white blood cells. Considering possible kidney stone she was given 1 dose of Toradol which completely abated her pain for at least 12 hours. She had bilateral renal ultrasound that showed bilateral mild hydronephrosis with unremarkable kidneys and bladder. The patient was given a fluid bolus and maintained on fluids 200 and mL an hour. Her initial gross hematuria was visually clear after a few hours. I consulted over the phone with [facility] at [facility] in [place]. They recommended urology and probable nephrology consultation. We are going to repeat her UA to see if microscopic hematuria is present or cleared and we will get a urine protein creatinine ratio as a baseline. Status: Acute (3) with 31 completed weeks gestation: Details from hospital stay: Patient had reactive NST upon admission with positive accelerations and no decelerations. Continue to follow-up for routine care Status: Acute Reason for Visit Reason for Visit: back pain, blood in urine Physical Exam Narrative: Alert and oriented, sitting up in bed, complaining of bilateral low back pain, no significant CVA tenderness, abdomen is nontender, extremities have no tenderness . Discharge Data Studies Completed and Pending Completed Studies During Hospitalization Category Date Time Status US kidney bilateral [US renal BI* [id number]] Urgent Ultrasound 01/09/24 02:19 Completed Pending at discharge Category Date Time Status Urine Culture Routine Lab 01/09/24 01:00 Received Radiology Impressions Renal Ultrasound 01/09/24 02:19 IMPRESSION: Mild bilateral hydronephrosis. Bilateral ureteral jets seen. Laboratory Results WBC 6.06 10^3/uL (3.29-11.43) 01/09/24 02:33 RBC 4.16 10^6/uL (3.85-5.65) 01/09/24 02:33 Hgb 11.30 g/dL (11.27-16.99) 01/09/24 02:33 Hct 35.9 % (36-47) L 01/09/24 02:33 MCV 86.3 fl (85-98) 01/09/24 02:33 MCH 27.2 pg (27-33) 01/09/24 02:33 MCHC 31.5 g/dL (30-55) 01/09/24 02:33 RDW 13.6 % (12.1-15.1) 01/09/24 02:33 Plt Count 131 10^3/cmm (157-399) L 01/09/24 02:33 MPV 12.8 fL (7.4-10.4) H 01/09/24 02:33 Neut % (Auto) 61.9 % 01/09/24 02:33 Lymph % (Auto) 23.6 % 01/09/24 02:33 Avery % (Auto) 8.4 % 01/09/24 02:33 Eos % (Auto) 5.0 % 01/09/24 02:33 Baso % (Auto) 0.8 % 01/09/24 02:33 Neut # (Auto) 3.75 10^3/uL (1.8-7.7) 01/09/24 02:33 Lymph # (Auto) 1.4 10^3/uL (0.8-4.8) 01/09/24 02:33 Avery # (Auto) 0.5 10^3/uL (0.2-0.9) 01/09/24 02:33 Eos # (Auto) 0.3 10^3/uL (0.0-0.8) 01/09/24 02:33 Baso # (Auto) 0.1 10^3/uL (0.0-0.1) 01/09/24 02:33 Nucleated RBC % (auto) 0 % 01/09/24 02:33 Nucleated RBCs # 0.0 /100WBC 01/09/24 02:33 Sodium 137 mmol/L (136-145) 01/09/24 02:33 Potassium 3.9 mmol/L (3.5-5.1) 01/09/24 02:33 Chloride 104 mmol/L (98-107) 01/09/24 02:33 Carbon Dioxide 21 mmol/L (22-29) L 01/09/24 02:33 Anion Gap 15.9 (5-19) 01/09/24 02:33 BUN 7 mg/dL (6-20) 01/09/24 02:33 Creatinine 0.5 mg/dL (0.5-0.9) 01/09/24 02:33 GFR Calculation 176.5 mL/min (90-130) H 01/09/24 02:33 Glucose 87 mg/dL (65-115) 01/09/24 02:33 Calculated Osmolality 281 mOsm/kg (285-295) L 01/09/24 02:33 Calcium 8.9 mg/dL (8.5-10.5) 01/09/24 02:33 Total Bilirubin 0.2 mg/dL (0.15-1.2) 01/09/24 02:33 AST 23 U/L (0-32) 01/09/24 02:33 ALT 14 U/L (0-33) 01/09/24 02:33 Alkaline Phosphatase 150 U/L (35-105) H 01/09/24 02:33 Total Protein 7.2 g/dL (6.6-8.7) 01/09/24 02:33 Albumin 3.4 g/dL (3.5-5.2) L 01/09/24 02:33 Globulin 3.8 g/dL (1.3-4.6) 01/09/24 02:33 Urine Color Red (Yellow) A 01/09/24 01:00 Urine Appearance Hazy (CLEAR) A 01/09/24 01:00 Urine pH 6 (5-7) 01/09/24 01:00 Ur Specific [place] 1.020 (1.005-1.030) 01/09/24 01:00 Urine Protein 1+ (Negative) H 01/09/24 01:00 Urine Glucose (UA) Norm (Normal) 01/09/24 01:00 Urine Ketones Negative (Negative) 01/09/24 01:00 Urine Blood 3+ (Negative) H 01/09/24 01:00 Urine Nitrate Negative (Negative) 01/09/24 01:00 Urine Bilirubin Neg (Negative) 01/09/24 01:00 Urine Urobilinogen Neg mg/dL (Negative) 01/09/24 01:00 Ur Leukocyte Esterase Negative (Negative) 01/09/24 01:00 Urine RBC >100 /hpf (0-2) H 01/09/24 01:00 Urine WBC None /hpf (0-5) 01/09/24 01:00 Ur Squamous Epith Cells 0-4 /hpf (0-5) H 01/09/24 01:00 Amorphous Sediment Not Reportable 01/09/24 01:00 Urine Bacteria Trace /hpf (NONE) 01/09/24 01:00 Urine Mucus 2+ /hpf 01/09/24 01:00 Vitals Last Vital Signs Temp 96.6 F L 01/09/24 15:59 Pulse 65 01/09/24 15:59 Resp 16 01/09/24 04:01 BP 113/82 01/09/24 15:59 Pulse Ox 98 01/09/24 04:01 O2 Del Method Room Air 01/09/24 04:01 Discharge Plan Discharge Patient Disposition: Home Condition: Stable Prescriptions: Continued metformin 500 mg Tablet 500 mg PO DAILY Discharge Orders: Discharge Order (Routine); Ordered 01/09/24 Ordered By: Ashley Negron Discharge Diet: Diabetic Discharge Activity: Resume usual activity Discharge Attestations Time Spent in Discharge Care*: greater than 30 min Quality Metrics Clinical Quality Measures [ No reported AMI, CVA or VTE this stay] Coding Level of Care Code Acute Code for Chg Fwd Diagnoses Acute left flank pain R10.9 Hematuria R31.9 with 31 completed weeks gestation Z3A.31
[2024-01-09 18:30] VITALS: BP 113/82; PULSE 65; RESP 16; TEMP 36.6
[2024-01-09 19:13] LABS: Add Urine Microscopic? YES; Bilirubin Urine Neg (Negative); Blood Urine 3+ (Negative); Glucose Urine UA Norm (Normal); Ketones Urine Negative (Negative); Leukocyte Esterase Urine 2+ (Negative); Nitrate Urine Negative (Negative); Protein Urine Neg (Negative); Urine Appearance SL Hazy (CLEAR); Urine Color Light yellow (Yellow); Urobilinogen Urine Norm (Negative); pH Urine 7 (5-7)
[2024-01-09 19:24] LABS: Urine Creatinine 29 mg/dL (28-217); Urine Protein Random 5 mg/dL
[2024-01-09 19:25] LABS: UPRO/UCREAT Ratio 0.17 mg/mg CR
[2024-01-09 19:29] LABS: Add Urine Culture? Yes; Bacteria Urine TRACE /hpf
== END 2024-01-09 18:45 | disposition home or self-care (01) ==
LOC: OPOB 12:20 → OBGYN 12:20
PROVIDERS: Admitting Provider Family Medicine; Visit Provider Family Medicine
DX: O26.893 Other specified pregnancy related conditions, third trimester (principal); Z3A.31 31 weeks gestation of pregnancy; R31.9 Hematuria, unspecified; R10.9 Unspecified abdominal pain; N13.30 Unspecified hydronephrosis
CPT/HCPCS: 36415; 59025; 76770; 80053; 81001; 82570; 84156; 85025; 87086; 96374; 99211; G0378; J1885; J7120

== ENCOUNTER 2024-01-20 21:33 | Outpatient (CLI) | payer BC, MEDICAID, SELFPAY ==
[2024-01-20] VITALS (9 sets, daily range): BP systolic 117–121; BP diastolic 72–85; PULSE 73–83; RESP 16; O2SAT 98–100; BMI 31.9
[2024-01-20 22:16] LABS: Urine Appearance Cloudy (CLEAR); Urine Color Yellow (Yellow)
[2024-01-20 22:17] LABS: Bilirubin Urine Neg (Negative); Blood Urine 2+ (Negative); Glucose Urine UA Norm (Normal); Ketones Urine 1+ (Negative); Leukocyte Esterase Urine 1+ (Negative); Nitrate Urine Negative (Negative); Protein Urine Neg (Negative); Urobilinogen Urine Neg (Negative); pH Urine 7 (5-7)
[2024-01-20 22:18] LABS: Bacteria Urine 1+ /hpf; Mucus Urine 1+ /hpf; Squamous Epithelial Cell Urine 15-25 /hpf (0-5)
[2024-01-20 22:30] LABS: Basophils % 0.3 %; Eosinophils # 0.1 10^3/uL (0.0-0.8); Eosinophils % 1.8 %; Hematocrit 33.9 % (36-47); Lymphocytes # 1.9 10^3/uL (0.8-4.8); Lymphocytes % 25.1 %; Mean Corpuscular HGB Conc 30.7 g/dL (30-55); Mean Corpuscular Hemoglobin 26.3 pg (27-33); Mean Corpuscular Volume 85.6 fl (85-98); Monocytes # 0.6 10^3/uL (0.2-0.9); Monocytes % 7.3 %; Neutrophils # 4.96 10^3/uL (1.8-7.7); Neutrophils % 65.4 %; Nucleated Red Blood Cells % 0 %; Platelet Count 132 10^3/cmm (157-399); Red Blood Count 3.96 10^6/uL (3.85-5.65); Red Cell Distribution Width 13.7 % (12.1-15.1); White Blood Count 7.58 10^3/uL (3.29-11.43)
[2024-01-20 22:45] LABS: Alanine Aminotransferase 11 U/L (0-33); Albumin Level 3.2 g/dL (3.5-5.2); Alkaline Phosphatase 166 U/L (35-105); Anion Gap 15.8 (5-19); Aspartate Amino Transferase 17 U/L (0-32); Blood Urea Nitrogen 11 mg/dL (6-20); Carbon Dioxide 20 mmol/L (22-29); Chloride 103 mmol/L (98-107); Creatinine Clr Calc Pharmacy 111.0911; Globulin 3.6 g/dL (1.3-4.6); Glomerular Filtration Rate 119.7 mL/min (90-130); Glucose 92 mg/dL (65-115); Osmolality Calculated 279 mOsm/kg (285-295); Potassium 3.8 mmol/L (3.5-5.1); Sodium 135 mmol/L (136-145); Total Bilirubin 0.2 mg/dL (0.15-1.2); Total Protein 6.8 g/dL (6.6-8.7)
[2024-01-20] MEDS: lactated ringers 1,000 ML 999 ML IV (22:50)
[2024-01-20 23:03] LABS: C Reactive Protein 3.9 mg/L (0.0-4.9)
[2024-01-20] MEDS: morphine 4 mg/mL SDV 1 mL IVP (23:30)
[2024-01-21 00:04] VITALS: PULSE 67; O2SAT 98
== END 2024-01-21 00:18 ==
LOC: OPOB 21:34 → OBGYN 21:34
PROVIDERS: Visit Provider Family Medicine
DX: O23.90 Unspecified genitourinary tract infection in pregnancy, unspecified trimester (principal); Z3A.00 Weeks of gestation of pregnancy not specified; M54.9 Dorsalgia, unspecified; Z86.718 Personal history of other venous thrombosis and embolism
CPT/HCPCS: 36415; 59025; 80053; 81001; 85025; 86140; 96374; 99211; J2270; J7120

== ENCOUNTER 2024-01-21 00:19 | Emergency (ER) | payer BC, MEDICAID, SELFPAY ==
[2024-01-21 00:24] VITALS: BP 157/89; PULSE 64; RESP 15; TEMP 36.4; O2SAT 100
--- NOTE | 2024-01-21 00:33 | USR_ITS ---
PROCEDURE INFORMATION: Exam: US Retroperitoneal; Complete; Kidneys and Bladder Exam date and time: 01/21/2024 1:50 AM Age: 28 years old Clinical indication: Abdominal pain; Flank; Left; ; Additional info: L flank pain, hematuria, TECHNIQUE: Imaging protocol: Real-time ultrasound of the retroperitoneum with image documentation. Complete exam focused on the kidneys and bladder. COMPARISON: US renal BI* [id number] 01/09/2024 3:41 AM FINDINGS: Right kidney: Right kidney shows no solid mass. Mild right hydronephrosis. Left kidney: Moderate left hydronephrosis. Adjacent to the left kidney laterally there is a 16 x 26 x 58 mm complex apparent fluid collection. Uterus: Gravid uterus not studied. Urinary bladder: Unremarkable. US/US renal BI* [id number] IMPRESSION: 1. Moderate left and mild right hydronephrosis mildly progressed on the right. 2. Left perinephric apparent fluid collection measuring about 2 x 3 x 6 cm. This may be due to abscess, hematoma, etc. This appears new from 01/09/2024.
[2024-01-21] MEDS: ondansetron 2 mg/ML SDV 2 mL 4 MG IVP ×2 (00:52→08:04)
[2024-01-21] MEDS: morphine 4 mg/mL SDV 1 mL IVP (00:52)
--- NOTE | 2024-01-21 01:25 | W.ED.ABDPA2 ---
HPI - Abdominal Pain General: Chief Complaint: Abdominal Pain Stated Complaint: low back pain sent by OB Time Seen by Provider: 01/21/24 00:23 History of Present Illness: 28-year-old at 33 weeks presenting with left flank pain. She has had left flank pain with hematuria on and off for the past 6 weeks or so. At times she has hematuria without flank pain, at times she has flank pain without hematuria. Last evening, she had both. The flank pain was worse than it has been in the past. No fever. She is nauseated but has not vomited. No diarrhea. She has been treated twice with antibiotics prior for presumed pyelonephritis. Associated Symptoms: Reports dysuria (prior not currently) and nausea; Denies diarrhea, fever(s) and vomiting Review of Systems Const: Denies: fever(s) ENMT: Denies: throat pain Card: Denies: chest pain or palpitations Resp: Denies: dyspnea GI: Reports: abdominal pain and nausea; Denies: vomiting or diarrhea : Reports: flank pain and dysuria (prior not currently) PFSH ED PFSH: Medical History History of prior with IUGR History of pre-eclampsia in prior , currently History of intrauterine growth restriction in prior , currently eclampsia History of spontaneous , currently History of pre-term labor Supervision of high risk in second trimester Surgical History No pertinent past surgical history Family History Unknown Family history unknown patient was adopted Other Diabetes Denies family history of Colon cancer Ovarian cancer Thyroid cancer Heart disease Breast cancer Hypertension Uterine cancer Stroke Social History Smoking and tobacco/nicotine status: never used tobacco/nicotine Physical Exam Const: COMMON NORMALS: no acute distress GENERAL APPEARANCE: cooperative; not ill appearing and not frail appearing HENMT: COMMON NORMALS: normocephalic, atraumatic and Normal external nose present HEAD & SCALP: normocephalic and atraumatic FACE & SINUS: normal facial exam and face symmetric NOSE: Normal external nose present Eye: COMMON NORMALS: Equal, round and reactive pupils present and EOMs intact bilaterally PUPIL: Yes Equal, round and reactive pupils present Neck/C-Spine: GENERAL: Yes trachea midline Chest: CHEST: Yes Symmetrical chest wall rise Resp: COMMON NORMALS: normal respiratory effort, No retractions, No use of accessory muscles and clear to auscultation bilaterally AUSCULTATION: clear to auscultation bilaterally Cardio: COMMON NORMALS: regular rate and regular rhythm RATE: regular rate RHYTHM: regular rhythm GI: COMMON NORMALS: Normal to inspection, nondistended, normoactive bowel sounds present PALPATION: No Tenderness to palpation present (GI) : BLADDER/KIDNEY EXAM: Yes CVA tenderness Back/Pelvis: GENERAL BACK: Yes CVA tenderness CVA tenderness: left Extremity: COMMON NORMALS: no pedal edema Neuro: ALEJANDRO COMA SCALE: document GCS findings [place] coma scale eye opening: Spontaneous [place] coma scale verbal response: Orientated [place] coma scale motor response: Obey commands Alejandro coma scale total score: 15 SENSORY EXAM: Yes extremities (intact) Psych: COMMON NORMALS: speech normal SPEECH: Yes normal speech Skin: COMMON NORMALS: no rashes or lesions noted GENERAL SKIN EXAM: no rashes or lesions noted Course Vital Signs: Vital signs: Vital Signs Temperature 97.5 F L 01/21/24 00:24 Pulse Rate 70 01/21/24 04:43 Respiratory Rate 16 01/21/24 04:43 Blood Pressure 121/78 01/21/24 04:43 Pulse Oximetry 100 01/21/24 04:43 Oxygen Delivery Me thod Room Air 01/21/24 00:24 MDM - Abdominal Pain Medical Decision Making Lab work done in OV, did not show significant white blood cell count elevation. There is no anemia or thrombocytopenia. Renal function is normal. Urinalysis there was contaminated. Repeat urinalysis here still shows 5-10 squamous epithelial cells with 5-10 white blood cells and 0-4 reds. Leukocyte Estrace is negative. Renal ultrasound shows moderate left and mild right hydronephrosis with a left perinephric apparent fluid collection thought to be due to abscess, hematoma, etc. Because of this, and ongoing left-sided flank pain, CT was performed. It shows a left proximal ureteral 7 mm calculus with mild left perinephric fluid collection without definite abscess. This is consistent with her symptoms. We do not have urology at this facility. We have a call out to urology in [facility] for this patient with a difficult to manage high kidney stone. Dr. Graff is graciously agreed to accept this patient at [facility] in [place]. We are arranging transfer. She remained stable. Lab Data Labs/Radiology: Radiology Impressions Renal Ultrasound 01/21/24 00:33 IMPRESSION: 1. Moderate left and mild right hydronephrosis mildly progressed on the right. 2. Left perinephric apparent fluid collection measuring about 2 x 3 x 6 cm. This may be due to abscess, hematoma, etc. This appears new from 01/09/2024. Abdomen/Pelvis CT 01/21/24 03:50 IMPRESSION: 1. Left proximal ureteral 7 mm calculus causes [id number] obstruction. 2. There is mild left perinephric fluid but no definite abscess. 3. Mild right hydronephrosis. No right ureteral stone. 4. Gravid uterus. 5. The colon is rather fecal filled. 6. Large and steatotic liver. Laboratory Results Urine Color Yellow (Yellow) 01/21/24 03:00 Urine Appearance Sl hazy (CLEAR) A 01/21/24 03:00 Urine pH 6.5 (5-7) 01/21/24 03:00 Ur Specific [place] 1.010 (1.005-1.030) 01/21/24 03:00 Urine Protein Neg (Negative) 01/21/24 03:00 Urine Glucose (UA) Norm (Normal) 01/21/24 03:00 Urine Ketones Negative (Negative) 01/21/24 03:00 Urine Blood Trace (Negative) H 01/21/24 03:00 Urine Nitrate Negative (Negative) 01/21/24 03:00 Urine Bilirubin Neg (Negative) 01/21/24 03:00 Urine Urobilinogen Neg mg/dL (Negative) 01/21/24 03:00 Ur Leukocyte Esterase Negative (Negative) 01/21/24 03:00 Ur Microscopic Indic Cancelled 01/21/24 03:00 Urine RBC 0-4 /hpf (0-2) H 01/21/24 03:00 Urine WBC 5-10 /hpf (0-5) H 01/21/24 03:00 Ur Squamous Epith Cells 5-10 /hpf (0-5) H 01/21/24 03:00 Amorphous Sediment Not Reportable 01/21/24 03:00 Urine Bacteria 1+ /hpf (NONE) H 01/21/24 03:00 Urine Mucus 1+ /hpf 01/21/24 03:00 All radiology interpretation(s) finalized by discharge Discharge Plan Discharge Patient Disposition: Xfer Short-Term Hosp Clinical Impression: Ureterolithiasis Condition: Stable Referrals: Ashley Negron MD [Primary Care Provider] - Coding Level of Care Code ED Pack Worker for Connie Krause
[2024-01-21] MEDS: metoclopramide 5 mg/mL SDV 2 mL 10 MG IVP (01:37)
[2024-01-21] MEDS: HYDROmorphone 1 mg/mL INJ 1 mL IVP ×2 (02:56→08:07)
[2024-01-21 03:11] LABS: Bilirubin Urine Neg (Negative); Blood Urine Trace (Negative); Glucose Urine UA Norm (Normal); Ketones Urine Negative (Negative); Leukocyte Esterase Urine Negative (Negative); Nitrate Urine Negative (Negative); Protein Urine Neg (Negative); Urine Appearance SL Hazy (CLEAR); Urine Color Yellow (Yellow); Urobilinogen Urine Neg (Negative); pH Urine 6.5 (5-7)
[2024-01-21 03:26] LABS: Bacteria Urine 1+ /hpf; Mucus Urine 1+ /hpf; RBC Urine 0-4 /hpf (0-2)
--- NOTE | 2024-01-21 03:50 | CTR_ITS ---
PROCEDURE INFORMATION: Exam: CT Abdomen And Pelvis With Contrast Exam date and time: 01/21/2024 4:01 AM Age: 28 years old Clinical indication: Abdominal pain; Patient HX: Left flank pain. Fluid/hematoma noted around left kidney on US. 33 weeks . ; Additional info: Left flank pain abnormal renal US TECHNIQUE: Imaging protocol: Computed tomography of the abdomen and pelvis with contrast. Radiation optimization: All CT scans at this facility use at least one of these dose optimization techniques: automated exposure control; mA and/or kV adjustment per patient size (includes targeted exams where dose is matched to clinical indication); or iterative reconstruction. Contrast material: OMNI 350; Contrast volume: 75 ml; Contrast route: INTRAVENOUS (IV); COMPARISON: US renal BI* [id number] 01/21/2024 1:50 AM RADIATION DOSE METRICS: Total DLP (mGy-cm): 543.56 FINDINGS: Lungs: The visualized lung bases are clear. Liver: Liver is large and hypodense. Gallbladder and bile ducts: No calcified gallstones or biliary dilation identified. Pancreas: Unremarkable with no suspicious mass. No ductal dilation. Spleen: The spleen is not enlarged. No suspicious enhancing mass is noted. Adrenal glands: Normal. No mass. Kidneys and ureters: Left perinephric fluid. Left proximal ureteral 7 mm calculus causes [id number] left-sided obstruction. Mild right hydronephrosis. Stomach and bowel: The colon is rather fecal filled. No small bowel obstruction, abscess or free air. Appendix: No evidence of appendicitis. Intraperitoneal space: No abscess or free air. Vasculature: No AAA or acute vascular lesion identified. Lymph nodes: No enlarged lymph nodes. Urinary bladder: Unremarkable as visualized. Reproductive: Gravid uterus. Single IUP. Cephalic presentation. Bones/joints: No acute fracture. Soft tissues: No acute or suspicious finding noted. CT/CT abdomen pelvis w con* [id number] IMPRESSION: 1. Left proximal ureteral 7 mm calculus causes [id number] obstruction. 2. There is mild left perinephric fluid but no definite abscess. 3. Mild right hydronephrosis. No right ureteral stone. 4. Gravid uterus. 5. The colon is rather fecal filled. 6. Large and steatotic liver.
[2024-01-21] MEDS: iohexol 350 mg/mL 500 mL Btl (per mL) IV (04:01)
[2024-01-21 04:43] VITALS: BP 121/78; PULSE 70; RESP 16; O2SAT 100
[2024-01-21 06:36] VITALS: BP 122/71; PULSE 71; RESP 16; O2SAT 100
--- NOTE | 2024-01-21 06:50 | PC.NURSE ---
THIS NURSE ASSUMED CARE AT 0645.
[2024-01-21 08:09] VITALS: BP 125/54; PULSE 68; O2SAT 100
== END 2024-01-21 08:14 | disposition short-term general hospital (02) ==
PROVIDERS: Emergency Provider Emergency Medicine; PCP Family Medicine
DX: N13.2 Hydronephrosis with renal and ureteral calculous obstruction (principal)
CPT/HCPCS: 74177; 76770; 81001; 96374; 96375; 96376; 99285; J1170; J2270; J2405; J2765; Q9967

== ENCOUNTER 2024-01-24 09:31 | Emergency (ER) | payer BC, MEDICAID, SELFPAY ==
[2024-01-24 09:43] VITALS: BP 151/118; PULSE 100; TEMP 36.4; O2SAT 99; BMI 29.8
--- NOTE | 2024-01-24 10:01 | W.ED.FEMALGU ---
HPI - Female Genitourinary General: Chief complaint: Urogenital-Female Stated complaint: Vaginal Pain Time Seen by Provider: 01/24/24 09:51 Source: patient Mode of arrival: ambulatory History of Present Illness: 28-year-old female at approximately 33 and half weeks gestation recently was found to have a left renal stone was transferred to [facility] seen urology and a stent was placed he continues to have renal colic and pain on that side no fever sweats or chills. No vomiting or diarrhea. MD elicited complaint: flank pain (L) Onset (ago): hour(s) Severity: mild Quality of pain: sharp Consistency: intermittent Vaginal discharge: none Vaginal bleeding: none Urinary symptoms: Difficulty Urinating Exacerbating factors: none Relieving factors: none Associated symptoms: Deny abdominal pain, short of breath, fevers/chills, headache(s), nausea, rash, seizures, syncope, vaginal bleeding, vaginal discharge or weakness Treatment prior to arrival: other (Prescription pain medicines) Review of Systems Const: Denies: fever(s) or chills Card: Denies: chest pain or syncope Resp: Denies: dyspnea GI: Denies: abdominal pain or nausea : Denies: dysuria, urinary frequency, urinary urgency or vaginal discharge Musc: Denies: neck pain or back pain Skin/Breast: Denies: rash Neuro: Denies: headache(s) PFSH ED PFSH: Medical History History of prior with IUGR History of pre-eclampsia in prior , currently History of intrauterine growth restriction in prior , currently eclampsia History of spontaneous , currently History of pre-term labor Supervision of high risk in second trimester Surgical History No pertinent past surgical history Family History Unknown Family history unknown patient was adopted Other Diabetes Denies family history of Colon cancer Ovarian cancer Thyroid cancer Heart disease Breast cancer Hypertension Uterine cancer Stroke Social History Smoking and tobacco/nicotine status: never used tobacco/nicotine Physical Exam Const: GENERAL APPEARANCE: cooperative ORIENTATION/CONSCIOUSNESS: Yes awake, Yes oriented to person, Yes oriented to place and Yes oriented to time HENMT: COMMON NORMALS: normocephalic, atraumatic and hearing grossly normal bilaterally HEAD & SCALP: normocephalic and atraumatic Resp: COMMON NORMALS: normal respiratory effort, No retractions, No use of accessory muscles and clear to auscultation bilaterally AUSCULTATION: clear to auscultation bilaterally Cardio: COMMON NORMALS: regular rate, regular rhythm and No murmurs present (Cardio) RATE: regular rate RHYTHM: regular rhythm GI: COMMON NORMALS: Soft to palpation and No hepatosplenomegaly present AUSCULTATION: Yes normoactive bowel sounds PALPATION: Yes Soft to palpation, No Tenderness to palpation present (GI), No Guarding due to palpation present (GI) and Yes No hepatosplenomegaly present : COMMON NORMALS: Yes no CVA tenderness BLADDER/KIDNEY EXAM: Yes no CVA tenderness SPECULUM EXAM - VAGINA: No vaginal bleeding OB/EXTERNAL & SPECULUM: No vaginal bleeding Back/Pelvis: COMMON NORMALS: no CVA tenderness Extremity: COMMON NORMALS: normal to inspection, capillary refill normal, no clubbing, cyanosis or edema, no calf tenderness and no pedal edema Neuro: SENSORIUM/ORIENTATION: Yes oriented to person, Yes oriented to place and Yes oriented to time Skin: COMMON NORMALS: no rashes or lesions noted GENERAL SKIN EXAM: no rashes or lesions noted Course Vital Signs: Vital signs: Vital Signs Temperature 97.6 F 01/24/24 09:43 Pulse Rate 84 01/24/24 10:23 Blood Pressure 124/74 01/24/24 10:30 Pulse Oximetry 100 01/24/24 10:23 Oxygen Delivery Me thod Room Air 01/24/24 10:23 [facility] - Female Medical Decision Making No urinary retention no sign of cystitis no leukocytosis.. Patient has a known left left nephrolithiasis with a stent and believe the pain she is getting is from spasm around the stent and the stone aggravated further by her . Discussed with urology at [place] they concur further imaging not indicated at this point. Kidney function is well-maintained. Change her to Percocet for pain increase tamsulosin to twice daily could consider adding hyoscyamine if does not improve. 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 Lab Data I reviewed the patient's lab results. 01/24/24 10:15 01/24/24 10:15 Laboratory Results WBC 5.16 10^3/uL (3.29-11.43) 01/24/24 10:15 RBC 3.98 10^6/uL (3.85-5.65) 01/24/24 10:15 Hgb 10.40 g/dL (11.27-16.99) L 01/24/24 10:15 Hct 34.5 % (36-47) L 01/24/24 10:15 MCV 86.7 fl (85-98) 01/24/24 10:15 MCH 26.1 pg (27-33) L 01/24/24 10:15 MCHC 30.1 g/dL (30-55) 01/24/24 10:15 RDW 13.8 % (12.1-15.1) 01/24/24 10:15 Plt Count 159 10^3/cmm (157-399) 01/24/24 10:15 MPV 12.3 fL (7.4-10.4) H 01/24/24 10:15 Neut % (Auto) 64.8 % 01/24/24 10:15 Lymph % (Auto) 26.7 % 01/24/24 10:15 [place] % (Auto) 5.8 % 01/24/24 10:15 Eos % (Auto) 2.1 % 01/24/24 10:15 Baso % (Auto) 0.4 % 01/24/24 10:15 Neut # (Auto) 3.34 10^3/uL (1.8-7.7) 01/24/24 10:15 Lymph # (Auto) 1.4 10^3/uL (0.8-4.8) 01/24/24 10:15 [place] # (Auto) 0.3 10^3/uL (0.2-0.9) 01/24/24 10:15 Eos # (Auto) 0.1 10^3/uL (0.0-0.8) 01/24/24 10:15 Baso # (Auto) 0.0 10^3/uL (0.0-0.1) 01/24/24 10:15 Nucleated RBC % (auto) 0 % 01/24/24 10:15 Nucleated RBCs # 0.0 /100WBC 01/24/24 10:15 Sodium 137 mmol/L (136-145) 01/24/24 10:15 Potassium 3.9 mmol/L (3.5-5.1) 01/24/24 10:15 Chloride 107 mmol/L (98-107) 01/24/24 10:15 Carbon Dioxide 21 mmol/L (22-29) L 01/24/24 10:15 Anion Gap 12.9 (5-19) 01/24/24 10:15 BUN 9 mg/dL (6-20) 01/24/24 10:15 Creatinine 0.6 mg/dL (0.5-0.9) 01/24/24 10:15 GFR Calculation 143.0 mL/min (90-130) H 01/24/24 10:15 Glucose 78 mg/dL (65-115) 01/24/24 10:15 Calculated Osmolality 282 mOsm/kg (285-295) L 01/24/24 10:15 Calcium 8.7 mg/dL (8.5-10.5) 01/24/24 10:15 Total Bilirubin 0.2 mg/dL (0.15-1.2) 01/24/24 10:15 AST 23 U/L (0-32) 01/24/24 10:15 ALT 13 U/L (0-33) 01/24/24 10:15 Alkaline Phosphatase 175 U/L (35-105) H 01/24/24 10:15 Total Protein 6.7 g/dL (6.6-8.7) 01/24/24 10:15 Albumin 3.1 g/dL (3.5-5.2) L 01/24/24 10:15 Globulin 3.6 g/dL (1.3-4.6) 01/24/24 10:15 Urine Color Yellow (Yellow) 01/24/24 10:46 Urine Appearance Cloudy (CLEAR) A 01/24/24 10:46 Urine pH 6 (5-7) 01/24/24 10:46 Ur Specific [place] 1.020 (1.005-1.030) 01/24/24 10:46 Urine Protein 3+ (Negative) H 01/24/24 10:46 Urine Glucose (UA) Norm (Normal) 01/24/24 10:46 Urine Ketones Negative (Negative) 01/24/24 10:46 Urine Blood 3+ (Negative) H 01/24/24 10:46 Urine Nitrate Negative (Negative) 01/24/24 10:46 Urine Bilirubin Neg (Negative) 01/24/24 10:46 Prot Sulfosalicylic Acd Cancelled 01/24/24 10:06 Urine Urobilinogen Norm mg/dL (Negative) 01/24/24 10:46 Ur Leukocyte Esterase 1+ (Negative) H 01/24/24 10:46 Urine RBC Too numerous to cnt /hpf (0-2) H 01/24/24 10:46 Urine WBC 5-10 /hpf (0-5) H 01/24/24 10:46 Ur Squamous Epith Cells Rare /hpf (0-5) 01/24/24 10:46 Ur Transition Epith Cell Cancelled 01/24/24 10:06 Ur Renal Epithelial Cell Cancelled 01/24/24 10:06 Calcium Oxalate Crystal Cancelled 01/24/24 10:06 Uric Acid Crystals Cancelled 01/24/24 10:06 Triple Phos Crystals Cancelled 01/24/24 10:06 Other Crystals Cancelled 01/24/24 10:06 Amorphous Sediment Not Reportable 01/24/24 10:46 Urine Bacteria 1+ /hpf (NONE) H 01/24/24 10:46 Hyaline Casts Cancelled 01/24/24 10:06 Fine Granular Casts Cancelled 01/24/24 10:06 Coarse Granular Casts Cancelled 01/24/24 10:06 RBC Casts Cancelled 01/24/24 10:06 Other Casts Cancelled 01/24/24 10:06 Urine Mucus 2+ /hpf 01/24/24 10:46 Urine Trichomonas Cancelled 01/24/24 10:06 Urine Yeast Cancelled 01/24/24 10:06 Urine Sperm Cancelled 01/24/24 10:06 Ur Oval Fat Bodies Cancelled 01/24/24 10:06 No radiology studies performed this visit Discharge Plan Discharge Patient Disposition: Home Clinical Impression: Ureterolithiasis, Ureteral stent present, Condition: Stable Prescriptions: New tamsulosin 0.4 mg capsule 0.4 mg PO BID Qty: 60 0RF Percocet 5-325 mg tablet 1 tab PO Q6H PRN (Reason: pain) Qty: 20 0RF Discharge Orders: Discharge ED (Routine); Ordered 01/24/24 Ordered By: Mike Mi Referrals: Ashley Negron MD [Primary Care Provider] - Discharge Diet: Usual diet Discharge Activity: Increase activity as tolerated Patient Instructions: Opioid Safety, Pain Management Activity Restrictions/Additional Instructions: Thank you for choosing [facility] for your healthcare needs today. Please realize this is an emergency room and that we are providing you with a medical screening exam and this may not be complete and all inclusive of all the testing and or work up that you may need to determine your ailment or severity of your illness. It is very important that you follow up as instructed or that you return to the Emergency Department should you have concerns or if your condition changes or worsens in any way. You are seen today for continued left flank pain. There is no sign of infection on your urine discussed with urology recommend increasing your tamsulosin: 2.4 mg twice a day, we also changed her pain medicine to Percocet 03/08/2025 1 every 6 hours as needed. Follow-up with audio production manager and urologist if you have further problems. Coding Level of Care Code ED Policy Writer for Connie Krause
[2024-01-24] MEDS: morphine 4 mg/mL SDV 1 mL 2 MG IVP (10:06)
[2024-01-24] MEDS: sodium chloride 0.9% 1,000 ML 999 ML IV (10:06)
[2024-01-24 10:21] LABS: Basophils % 0.4 %; Eosinophils # 0.1 10^3/uL (0.0-0.8); Eosinophils % 2.1 %; Hematocrit 34.5 % (36-47); Lymphocytes # 1.4 10^3/uL (0.8-4.8); Lymphocytes % 26.7 %; Mean Corpuscular HGB Conc 30.1 g/dL (30-55); Mean Corpuscular Hemoglobin 26.1 pg (27-33); Mean Corpuscular Volume 86.7 fl (85-98); Mean Platelet Volume 12.3 fL (7.4-10.4); Monocytes # 0.3 10^3/uL (0.2-0.9); Monocytes % 5.8 %; Neutrophils # 3.34 10^3/uL (1.8-7.7); Neutrophils % 64.8 %; Nucleated Red Blood Cells % 0 %; Platelet Count 159 10^3/cmm (157-399); Red Blood Count 3.98 10^6/uL (3.85-5.65); Red Cell Distribution Width 13.8 % (12.1-15.1); White Blood Count 5.16 10^3/uL (3.29-11.43)
[2024-01-24 10:23] VITALS: BP 141/101; PULSE 84; O2SAT 100
[2024-01-24 10:30] VITALS: BP 124/74
[2024-01-24 10:47] LABS: Albumin Level 3.1 g/dL (3.5-5.2); Alkaline Phosphatase 175 U/L (35-105); Chloride 107 mmol/L (98-107); Potassium 3.9 mmol/L (3.5-5.1); Sodium 137 mmol/L (136-145)
--- NOTE | 2024-01-24 10:49 | PC.NURSE ---
per Dr. Mi to straight cath patient and use cath urine sample instead of voided urine sample. this nurse informed laborer pipeline to use cath urine specimen and to cancel first urinalysis order.
[2024-01-24 11:16] LABS: Anion Gap 12.9 (5-19); Aspartate Amino Transferase 23 U/L (0-32); Blood Urea Nitrogen 9 mg/dL (6-20); Calcium 8.7 mg/dL (8.5-10.5); Carbon Dioxide 21 mmol/L (22-29); Creatinine Clr Calc Pharmacy 125.2479; Globulin 3.6 g/dL (1.3-4.6); Glucose 78 mg/dL (65-115); Osmolality Calculated 282 mOsm/kg (285-295); Total Bilirubin 0.2 mg/dL (0.15-1.2); Total Protein 6.7 g/dL (6.6-8.7)
[2024-01-24 11:18] LABS: Alanine Aminotransferase 13 U/L (0-33)
[2024-01-24 11:27] LABS: Add Urine Microscopic? YES; Bilirubin Urine Neg (Negative); Blood Urine 3+ (Negative); Glucose Urine UA Norm (Normal); Ketones Urine Negative (Negative); Leukocyte Esterase Urine 1+ (Negative); Nitrate Urine Negative (Negative); Protein Urine 3+ (Negative); Urine Appearance Cloudy (CLEAR); Urine Color Yellow (Yellow); Urobilinogen Urine Norm (Negative); pH Urine 6 (5-7)
[2024-01-24 11:34] LABS: Bacteria Urine 1+ /hpf; RBC Urine TOO NUMEROUS TO CNT /hpf (0-2); Squamous Epithelial Cell Urine RARE /hpf (0-5)
[2024-01-24 11:35] LABS: Add Urine Culture? Yes; Mucus Urine 2+ /hpf
[2024-01-24 12:26] VITALS: BP 117/83; PULSE 74; O2SAT 100
== END 2024-01-24 12:27 | disposition home or self-care (01) ==
PROVIDERS: Emergency Provider Family Medicine; PCP Family Medicine
DX: O26.893 Other specified pregnancy related conditions, third trimester (principal); Z3A.33 33 weeks gestation of pregnancy; N20.1 Calculus of ureter; Z96.0 Presence of urogenital implants
CPT/HCPCS: 51701; 51798; 80053; 81001; 85025; 87086; 96361; 96374; 99284; J2270; J7030

== ENCOUNTER 2024-02-15 15:50 | Oncology outpatient (recurring) (ONCR) | payer BC, MEDICAID, SELFPAY ==
--- NOTE | 2024-02-15 16:09 | PC.NURSE ---
Midline Removal Midline removed at 1605 on 02/15/24. Midline measured 12 cm on removal. Site dressed with gauze and occlusive dressing. Patient tolerated well.
== END 2024-03-05 23:59 | disposition home or self-care (01) ==
LOC: ONCMED 15:51
PROVIDERS: PCP Family Medicine; Visit Provider Family Medicine
DX: R78.81 Bacteremia (principal)
CPT/HCPCS: 36415; 87040

== ENCOUNTER 2025-10-10 08:24 | Emergency (ER) | payer SELFPAY ==
[2025-10-10 08:28] VITALS: BP 177/128; PULSE 127; RESP 19; TEMP 36.6; O2SAT 97; BMI 26.4
--- NOTE | 2025-10-10 08:39 | CT_ITS ---
WS: [id number] CT ABDOMEN PELVIS TECHNIQUE: Noncontrast CT of the abdomen and pelvis with coronal and sagittal reformatted images. CLINICAL INFORMATION: flank pain COMPARISON: CT 01/21/2024 DLP: 450.[address] scans at [facility] use at least one of these dose optimization techniques: automated exposure control; mA and/or kV adjustment per patient size (includes targeted exams where dose is matched to clinical indication); or iterative reconstruction. FINDINGS: Normal noncontrast liver and spleen. Hepatomegaly. Adrenal glands are normal. No hydronephrosis in either kidney. No obstructing renal or ureteral calculi. Tiny nonobstructing LEFT calyceal tip calculus. Normal noncontrast pancreas. Small esophageal hiatal hernia. Small air-fluid level in the stomach. Gallbladder is contracted. Normal caliber abdominal aorta. Fat-containing umbilical hernia. Enlarged uterus likely . Fluid in the cervix likely physiologic. Bladder is decompressed. Small amount of free fluid in the cul-de-sac. Normal appendix. CT/CT kidney stone [id number] IMPRESSION: 1. No obstructing renal or ureteral calculi. No hydronephrosis. 2. Tiny nonobstructing LEFT calyceal tip calculi. 3. Hepatomegaly. 4. Tiny esophageal hiatal hernia. Small air-fluid level in the stomach. 5. Enlarged uterus likely . Small amount of free fluid in the cul-de -sac. 6. No other acute findings.
[2025-10-10 08:46] LABS: Hematocrit 40.1 % (36-47); Hemoglobin 11.80 g/dL (11.27-16.99); Mean Corpuscular HGB Conc 29.4 g/dL (30-55); Mean Corpuscular Hemoglobin 24.4 pg (27-33); Mean Corpuscular Volume 83.0 fl (85-98); Nucleated Red Blood Cells % 0 %; Platelet Count 221 10^3/cmm (157-399); Red Blood Count 4.83 10^6/uL (3.85-5.65); White Blood Count 5.67 10^3/uL (3.29-11.43)
--- NOTE | 2025-10-10 08:46 | ED_ITS ---
HPI - Female Genitourinary 2 General: Chief complaint: Urogenital-Female Stated complaint: lt mid abd pain Time Seen by Provider: 10/10/25 08:33 Source: patient Mode of arrival: ambulatory Limitations: no limitations History of Present Illness: 29-year-old female states that she woke up this morning having sudden onset of left-sided flank pain. States the pain has been sharp in nature rates it an 8 out of 10. States she has had a kidney stone in the past this feels similar she denies any vomiting denies any fever denies any dysuria. Associated symptoms: Deny abdominal pain, headache(s) or nausea Related Data Previous Rx's ?Medication ?Instructions ?Recorded methocarbamol 750 mg tablet 750 mg PO Q6H PRN spasms # 20 tabs 10/10/25 naproxen 500 mg tablet (Naprosyn) 500 mg PO BID PRN pa in #20 tabs 10/10/25 Allergies Allergy/AdvReac Type Severity Reaction Status Date / Time No Known Allergies Allergy Verified 01/24/24 09:48 Review of Systems 2 Const: Denies: fever(s), chills, body aches or change in appetite ENMT: Denies: throat pain or dental pain Card: Denies: chest pain Resp: Denies: dyspnea GI: Denies: abdominal pain, nausea, vomiting or diarrhea : Reports: flank pain Musc: Denies: neck pain or back pain Skin/Breast: Denies: rash Neuro: Denies: headache(s) PFSH ED 2 PFSH: Medical History History of prior with IUGR History of pre-eclampsia in prior , currently History of intrauterine growth restriction in prior , currently eclampsia History of spontaneous , currently History of pre-term labor Supervision of high risk in second trimester Surgical History No pertinent past surgical history Family History Unknown Family history unknown patient was adopted Other Diabetes Denies family history of Colon cancer Ovarian cancer Thyroid cancer Heart disease Breast cancer Hypertension Uterine cancer Stroke Social History Smoking and tobacco/nicotine status: never used tobacco/nicotine Physical Exam 2 Const: COMMON NORMALS: no acute distress, patient oriented x3 and healthy appearing HENMT: COMMON NORMALS: normocephalic and atraumatic HEAD & SCALP: n ormocephalic and atraumatic Neck/C-Spine: COMMON NORMALS: full ROM and supple Chest: COMMONS NORMALS: normal inspection of the chest Resp: COMMON NORMALS: normal respiratory effort, No retractions, No use of accessory muscles and clear to auscultation bilaterally AUSCULTATION: clear to auscultation bilaterally Cardio: COMMON NORMALS: regular rate, regular rhythm and No murmurs present (Cardio) RATE: regular rate RHYTHM: regular rhythm GI: COMMON NORMALS: Normal to inspection, nondistended, normoactive bowel sounds present, Soft to palpation, non-tender and no masses PALPATION: Yes Soft to palpation Extremity: COMMON NORMALS: normal to inspection and full ROM Neuro: COMMON NORMALS: patient oriented x3, moves all extremities and no focal motor deficits Psych: COMMON NORMALS: mental status grossly normal, Normal thought process present and cooperative THOUGHT PROCESS: Normal thought process present Skin: COMMON NORMALS: no rashes or lesions noted and no wounds GENERAL SKIN EXAM: no rashes or lesions noted Course 2 Vital Signs: Vital signs: Vital Signs Temperature 97.9 F 10/10/25 08:28 Pulse Rate 79 10/10/25 08:47 Respiratory Rate 16 10/10/25 09:14 Blood Pressure 123/80 10/10/25 09:16 Pulse Oximetry 99 10/10/25 09:16 Oxygen Delivery Ca thod Room Air 10/10/25 09:16 MDM - Female Medical Decision Making Patient presents today with left-sided flank pain she is tender to touch on exam. History of kidney stones as well as she states the pain is also worse with deep inspiration. Differential includes pulm emboli, pyelonephritis, kidney stone. Did do a D-dimer that was positive CTA shows no signs of PE. UA showed no blood or signs of infection blood work showed no significant abnormality. CT scan was reviewed by me showed no signs of pyelonephritis or kidney stone and was negative. She does feel improved after pain meds pain is likely muscular in nature will place her on Naprosyn and Robaxin she is to follow-up with PCP and return if worsening I did go over all these findings with her and she understands agrees to plan Medical Records I reviewed the patient's medical records. Lab Data I reviewed the patient's lab results. 10/10/25 08:38 10/10/25 08:38 Radiology Impressions Abdomen/Pelvis CT 10/10/25 08:39 IMPRESSION: 1. No obstructing renal or ureteral calculi. No hydronephrosis. 2. Tiny nonobstructing LEFT calyceal tip calculi. 3. Hepatomegaly. 4. Tiny esophageal hiatal hernia. Small air-fluid level in the stomach. 5. Enlarged uterus likely . Small amount of free fluid in the cul-de-sac. 6. No other acute findings. Chest CTA 10/10/25 09:10 IMPRESSION: 1. No evidence of pulmonary embolus. 2. Lungs are well aerated. Slight bibasilar atelectasis. 3. No other acute findings Laboratory Results WBC 5.67 10^3/uL (3.29-11.43) 10/10/25 08:38 RBC 4.83 10^6/uL (3.85-5.65) 10/10/25 08:38 Hgb 11.80 g/dL (11.27-16.99) 10/10/25 08:38 Hct 40.1 % (36-47) 10/10/25 08:38 MCV 83.0 fl (85-98) L 10/10/25 08:38 MCH 24.4 pg (27-33) L 10/10/25 08:38 MCHC 29.4 g/dL (30-55) L 10/10/25 08:38 RDW 14.6 % (12.1-15.1) 10/10/25 08:38 Plt Count 221 10^3/cmm (157-399) 10/10/25 08:38 MPV 11.4 fL (7.4-10.4) H 10/10/25 08:38 Neut % (Auto) 64.6 % 10/10/25 08:38 Lymph % (Auto) 25.6 % 10/10/25 08:38 [place] % (Auto) 6.2 % 10/10/25 08:38 Eos % (Auto) 2.3 % 10/10/25 08:38 Baso % (Auto) 1.1 % 10/10/25 08:38 Neut # (Auto) 3.67 10^3/uL (1.8-7.7) 10/10/25 08:38 Lymph # (Auto) 1.5 10^3/uL (0.8-4.8) 10/10/25 08:38 [place] # (Auto) 0.4 10^3/uL (0.2-0.9) 10/10/25 08:38 Eos # (Auto) 0.1 10^3/uL (0.0-0.8) 10/10/25 08:38 Baso # (Auto) 0.1 10^3/uL (0.0-0.1) 10/10/25 08:38 Nucleated RBC % (auto) 0 % 10/10/25 08:38 Nucleated RBCs # 0.0 /100WBC 10/10/25 08:38 D-Dimer 0.67 ug/mLFEU (0-0.59) H 10/10/25 08:38 Sodium 138 mmol/L (136-145) 10/10/25 08:38 Potassium 4.0 mmol/L (3.5-5.1) 10/10/25 08:38 Chloride 102 mmol/L (98-107) 10/10/25 08:38 Carbon Dioxide 25 mmol/L (22-29) 10/10/25 08:38 Anion Gap 15.0 (5-19) 10/10/25 08:38 BUN 10 mg/dL (6-20) 10/10/25 08:38 Creatinine 0.7 mg/dL (0.5-0.9) 10/10/25 08:38 GFR Calculation 118.9 mL/min (90-130) 10/10/25 08:38 Glucose 102 mg/dL (65-115) 10/10/25 08:38 Calculated Osmolality 285 mOsm/kg (285-295) 10/10/25 08:38 Calcium 10.1 mg/dL (8.5-10.5) 10/10/25 08:38 Total Bilirubin 0.4 mg/dL (0.15-1.2) 10/10/25 08:38 AST 22 U/L (0-32) 10/10/25 08:38 ALT 16 U/L (0-33) 10/10/25 08:38 Alkaline Phosphatase 95 U/L (35-105) 10/10/25 08:38 Total Protein 8.5 g/dL (6.6-8.7) 10/10/25 08:38 Albumin 4.7 g/dL (3.5-5.2) 10/10/25 08:38 Globulin 3.8 g/dL (1.3-4.6) 10/10/25 08:38 Lipase 24 U/L (13-60) 10/10/25 08:38 HCG, Qual Negative (Negative) 10/10/25 08:38 Urine Color Dark yellow (Yellow) A 10/10/25 08:38 Urine Appearance Cloudy (CLEAR) A 10/10/25 08:38 Urine pH 6.0 (5-7) 10/10/25 08:38 Ur Specific [place] 1.029 (1.005-1.030) 10/10/25 08:38 Urine Protein Trace (Negative) A 10/10/25 08:38 Urine Glucose (UA) Negative (Normal) 10/10/25 08:38 Urine Ketones Trace (Negative) 10/10/25 08:38 Urine Blood Negative (Negative) 10/10/25 08:38 Urine Nitrate Negative (Negative) 10/10/25 08:38 Urine Bilirubin Negative (Negative) 10/10/25 08:38 Urine Urobilinogen 1.0 mg/dL (Negative) 10/10/25 08:38 Ur Leukocyte Esterase Negative (Negative) 10/10/25 08:38 Urine RBC 0-2 /hpf (0-2) 10/10/25 08:38 Urine WBC 0-5 /hpf (0-5) 10/10/25 08:38 Ur Squamous Epith Cells 11-20 /hpf (0-5) H 10/10/25 08:38 Amorphous Sediment Not Reportable 10/10/25 08:38 Urine Bacteria 1+ /hpf (NONE) H 10/10/25 08:38 Hyaline Casts 3.71 /lpf 10/10/25 08:38 All radiology interpretation(s) finalized by discharge Discharge Plan Discharge Patient Disposition: Home Clinical Impression: Back pain Condition: Stable Prescriptions: New methocarbamol 750 mg tablet 750 mg PO Q6H PRN (Reason: spasms) Qty: 20 0RF naproxen [Naprosyn] 500 mg tablet 500 mg PO BID PRN (Reason: pain) Qty: 20 0RF Discharge Orders: Discharge ED (Routine); Ordered 10/10/25 Ordered By: Ana Luisa Oglesby Discharge Diet: Advance as tolerated Discharge Activity: Resume usual activity Patient Instructions: Back Pain (ED) Print Language: Romansh Coding Level of Care Code ED [employer] Work Supervisor for Connie Krause
[2025-10-10 08:47] VITALS: BP 167/97; PULSE 79; O2SAT 98
[2025-10-10 08:50] LABS: Glucose Urine UA Negative (Normal); Nitrate Urine Negative (Negative); Specific Gravity, Urine 1.029 (1.005-1.030)
[2025-10-10 08:55] LABS: Add Urine Microscopic? YES
[2025-10-10 09:10] LABS: Alanine Aminotransferase 16 U/L (0-33); Albumin Level 4.7 g/dL (3.5-5.2); Alkaline Phosphatase 95 U/L (35-105); Anion Gap 15.0 (5-19); Aspartate Amino Transferase 22 U/L (0-32); Blood Urea Nitrogen 10 mg/dL (6-20); Calcium 10.1 mg/dL (8.5-10.5); Carbon Dioxide 25 mmol/L (22-29); Chloride 102 mmol/L (98-107); Globulin 3.8 g/dL (1.3-4.6); Glucose 102 mg/dL (65-115); Lipase 24 U/L (13-60); Osmolality Calculated 285 mOsm/kg (285-295); Potassium 4.0 mmol/L (3.5-5.1); Sodium 138 mmol/L (136-145); Total Protein 8.5 g/dL (6.6-8.7)
--- NOTE | 2025-10-10 09:10 | CT_ITS ---
WS: [id number] CTA OF THE CHEST WITH PULMONARY EMBOLISM PROTOCOL TECHNIQUE: High-resolution contrast enhanced CTA of the chest with coronal and sagittal reformatted images with pulmonary embolism protocol. MIP images are also reviewed. CLINICAL INFORMATION: cp pain COMPARISON: None. DLP: 297.[address] scans at [facility] use at least one of these dose optimization techniques: automated exposure control; mA and/or kV adjustment per patient size (includes targeted exams where dose is matched to clinical indication); or iterative reconstruction. FINDINGS: Proximal main pulmonary arteries are normal. Normal segmental and subsegmental pulmonary arteries. No evidence of pulmonary embolus. Lungs are well aerated. No acute pulmonary infiltrates. Slight bibasilar atelectasis. No mediastinal or hilar lymphadenopathy. No axillary lymphadenopathy. CT/CT angio chest PE protcl [id number] IMPRESSION: 1. No evidence of pulmonary embolus. 2. Lungs are well aerated. Slight bibasilar atelectasis. 3. No other acute findings
[2025-10-10] MEDS: ondansetron 2 mg/ML SDV 2 mL 4 MG IVP (09:11)
[2025-10-10 09:14] VITALS: RESP 16
[2025-10-10 09:14] LABS: HCG, Serum Qual Negative (Negative)
[2025-10-10] MEDS: morphine 4 mg/mL SDV 1 mL IVP (09:14)
[2025-10-10 09:16] VITALS: BP 123/80; O2SAT 99
[2025-10-10 09:24] LABS: UA Slide Review UA Slide Review Perf
[2025-10-10] MEDS: iohexol 350 mg/mL 500 mL Btl (per mL) IV (09:41)
[2025-10-10 10:24] VITALS: BP 140/98; PULSE 64; O2SAT 100
== END 2025-10-10 10:27 | disposition home or self-care (01) ==
PROVIDERS: Emergency Provider Emergency Medicine
DX: M54.9 Dorsalgia, unspecified (principal)
CPT/HCPCS: 36415; 71275; 74176; 80053; 81001; 83690; 84703; 85025; 85378; 96361; 96374; 96375; 99285; J1885; J2270; J2405; J7030